=== PATIENT | female | born 1985 | race Caucasian/White ===

== ENCOUNTER 2018-03-20 13:58 | Emergency (ER) | payer BC ==
[2018-03-20] MEDS ORDERED: ALBUTEROL 2.5 MG/3 ML NEB SOL ONE (14:46)
[2018-03-20] MEDS ORDERED: IPRATROPIUM BROM 0.5MG/2.5ML ONE (14:46)
--- NOTE | 2018-03-20 15:15 | RAD REPORT ---
EXAM DESCRIPTION: RAD - Chest Pa And Lat (2 Views) - 03/20/2018 3:06 pm CLINICAL HISTORY: COUGH Chest pain. COMPARISON: CHEST SINGLE VIEW dated 07/10/2012 FINDINGS: The lungs are clear. The heart is normal in size. No displaced fractures. IMPRESSION: No acute or concerning finding suspected.
--- NOTE | 2018-03-20 15:49 | EDPHYS ---
Physician Documentation [facility] Name: Agustina Palmer Age: 32 yrs Sex: Female : 1985 Arrival Date: 03/20/2018 Time: 14:00 Bed 18 Private MD: None, None ED Physician Parag Valentine HPI: 03/20 14:52 This 32 yrs old Female presents to ER via Ambulatory with complaints of kb Dizziness, Vomiting, Cough, Headache. 14:52 The patient or guardian reports cough, that is intermittent, described as moderate, kb with no sputum. Onset: The symptoms/episode began/occurred 4 day(s) ago. Severity of symptoms: At their worst the symptoms were moderate, in the emergency department the symptoms are unchanged. Modifying factors: The symptoms are alleviated by nothing, the symptoms are aggravated by nothing. Associated signs and symptoms: Pertinent positives: nausea, rhinorrhea, vomiting, Pertinent negatives: chest pain, diarrhea, ear ache, fever, sore throat. The patient has not experienced similar symptoms in the past. The patient has not recently seen a physician. Pt reports cough, dizziness, rhinorrhea, congestion, nose bleeds and vomiting for 4 days. Denies fever. 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 - Social history:: Smoking status: Patient/guardian denies using tobacco. - Ebola Screening: : No symptoms or risks identified at this time. ROS: 14:53 Constitutional: Negative for fever, chills, and weight loss, Cardiovascular: Negative kb for chest pain, palpitations, and edema, Back: Negative for injury and pain, : Negative for injury, bleeding, discharge, and swelling, MS/Extremity: Negative for injury and deformity, Skin: Negative for injury, rash, and discoloration. 14:53 Constitutional: Positive for fatigue, malaise. 14:53 Respiratory: Positive for cough, Negative for dyspnea on exertion, hemoptysis, orthopnea, pleurisy, shortness of breath, sputum production, wheezing. 14:53 Abdomen/GI: Positive for nausea and vomiting. 14:53 Neuro: Positive for dizziness. Exam: 14:53 Constitutional: This is a well developed, well nourished patient who is awake, alert, kb and in no acute distress. Head/Face: Normocephalic, atraumatic. ENT: Nares patent. No nasal discharge, no septal abnormalities noted. Tympanic membranes are normal and external auditory canals are clear. Oropharynx with no redness, swelling, or masses, exudates, or evidence of obstruction, uvula midline. Mucous membranes moist. Neck: Trachea midline, no thyromegaly or masses palpated, and no cervical lymphadenopathy. Supple, full range of motion without nuchal rigidity, or vertebral point tenderness. No Meningismus. Chest/axilla: Normal chest wall appearance and motion. Nontender with no deformity. No lesions are appreciated. Cardiovascular: Regular rate and rhythm with a normal S1 and S2. No gallops, murmurs, or rubs. Normal PMI, no JVD. No pulse deficits. Respiratory: Lungs have equal breath sounds bilaterally, clear to auscultation and percussion. No rales, rhonchi or wheezes noted. No increased work of breathing, no retractions or nasal flaring. Abdomen/GI: Soft, non-tender, with normal bowel sounds. No distension or tympany. No guarding or rebound. No evidence of tenderness throughout. Skin: Warm, dry with normal turgor. Normal color with no rashes, no lesions, and no evidence of cellulitis. MS/ Extremity: Pulses equal, no cyanosis. Neurovascular intact. Full, normal range of motion. Neuro: Awake and alert, GCS 15, oriented to person, place, time, and situation. Cranial nerves II-XII grossly intact. Motor strength 5/5 in all extremities. Sensory grossly intact. Cerebellar exam normal. Normal gait. Vital Signs: 14:12 BP 138 / 101; Pulse 97; Resp 18 S; Temp 98.9(O); Pulse Ox 98% on R/A; Weight 101.15 kg aa5 (R); Height 5 ft. 4 in. (162.56 cm) (R); Pain 6/10; 14:53 BP 147 / 90; Pulse 92; Resp 16 S; Pulse Ox 99% on R/A; jl7 14:12 Body Mass Index 38.28 (101.15 kg, 162.56 cm) aa5 MDM: 14:18 Patient medically screened. kb 14:55 Data reviewed: vital signs, nurses notes. Data interpreted: Pulse oximetry: on room air kb is 99 %. Interpretation: normal. 15:46 Counseling: I had a detailed discussion with the patient and/or guardian regarding: the kb historical points, exam findings, and any diagnostic results supporting the discharge/admit diagnosis, lab results, radiology results, the need for outpatient follow up, a family practitioner, to return to the emergency department if symptoms worsen or persist or if there are any questions or concerns that arise at home. 03/20 14:33 Order name: Flu; Complete Time: 15:46 kb 03/20 14:33 Order name: Chest Pa And Lat (2 Views) XRAY; Complete Time: 15:18 kb Administered Medications: 14:46 Drug: DuoNeb (3:1) (2.5 mg - 0.5 mg) 3 ml Route: Nebulizer; jl7 15:00 Follow up: Response: No adverse reaction jl7 Disposition: 16:37 Co-signature as Attending Physician, Parag Valentine MD. rn Disposition: 03/20/18 15:48 Discharged to Home. Impression: Bronchitis, not specified as acute or chronic. - Condition is Stable. - Discharge Instructions: Acute Bronchitis, [id number]. - Prescriptions for Albuterol Sulfate 90 mcg/actuation - inhale 1-2 puff by INHALATION route every 4-6 hours; 1 Inhaler. - Medication Reconciliation Form, Thank You Letter, Antibiotic Education, Prescription Opioid Use, Work release form form. - Follow up: Emergency Department; When: As needed; Reason: Worsening of condition. Follow up: Private Physician; When: 2 - 3 days; Reason: Recheck today's complaints, Continuance of care, Re-evaluation by your physician. Signatures: Dispatcher [employer] EDAsiya Gudino, FELLED SEAM OPERATOR-C FELLED SEAM OPERATOR-Parag Nguyen MD MD rn Calderon, Audri RN RN aa5 Jacob Granado RN RN jl7 Corrections: (The following items were deleted from the chart) 15:54 15:48 03/20/2018 15:48 Discharged to Home. Impression: Bronchitis, not specified as jl7 acute or chronic. Condition is Stable. Forms are Medication Reconciliation Form, Thank You Letter, Antibiotic Education, Prescription Opioid Use. Follow up: Emergency Department; When: As needed; Reason: Worsening of condition. Follow up: Private Physician; When: 2 - 3 days; Reason: Recheck today's complaints, Continuance of care, Re-evaluation by your physician. kb
--- NOTE | 2018-03-20 15:49 | ER ---
Nurse's Notes [facility] Name: Agustina Palmer Age: 32 yrs Sex: Female : 1985 Arrival Date: 03/20/2018 Time: 14:00 Bed 18 Private MD: None, None Diagnosis: Bronchitis, not specified as acute or chronic Presentation: 03/20 14:11 Presenting complaint: Patient states: dizziness, cough with clear sputum, headache to aa5 left mandaen, and vomiting x 3-4 days ago. Transition of care: patient was not received from another setting of care. Onset of symptoms was March 2018. Risk Assessment: Do you want to hurt yourself or someone else? Patient reports no desire to harm self or others. Initial Sepsis Screen: Does the patient meet any 2 criteria? No. Patient's initial sepsis screen is negative. Does the patient have a suspected source of infection? No. Patient's initial sepsis screen is negative. Care prior to arrival: None. 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 - Social history:: Smoking status: Patient/guardian denies using tobacco. - Ebola Screening: : No symptoms or risks identified at this time. Screenin:48 Abuse screen: Denies threats or abuse. Denies injuries from another. Nutritional jl7 screening: No deficits noted. Tuberculosis screening: No symptoms or risk factors identified. Fall Risk None identified. Assessment: 14:46 General: Appears in no apparent distress. uncomfortable, Behavior is calm, cooperative, jl7 appropriate for age. Pain: Complains of pain in headache. Neuro: Level of Consciousness is awake, alert, obeys commands, Oriented to person, place, time, situation. Cardiovascular: Heart tones S1 S2 present. Respiratory: Reports cough that is dry, Airway is patent Respiratory effort is even, unlabored, Respiratory pattern is regular, symmetrical, Breath sounds are clear bilaterally. GI: Abdomen is round non-distended. : No signs and/or symptoms were reported regarding the genitourinary system. EENT: No signs and/or symptoms were reported regarding the EENT system. Derm: Skin is pink, warm \T\ dry. Musculoskeletal: No signs and/or symptoms reported regarding the musculoskeletal system. Vital Signs: 14:12 BP 138 / 101; Pulse 97; Resp 18 S; Temp 98.9(O); Pulse Ox 98% on R/A; Weight 101.15 kg aa5 (R); Height 5 ft. 4 in. (162.56 cm) (R); Pain 6/10; 14:53 BP 147 / 90; Pulse 92; Resp 16 S; Pulse Ox 99% on R/A; jl7 14:12 Body Mass Index 38.28 (101.15 kg, 162.56 cm) aa5 ED Course: 14:00 Patient arrived in ED. mr 14:00 None, None is Private Physician. mr 14:11 Arm band placed on. aa5 14:12 Triage completed. aa5 14:18 Asiya Pat FNP-C [facility]. kb 14:18 Parag Valentine MD is Attending Physician. kb 14:31 Jacob Granado RN is Primary Nurse. jl7 14:46 Flu and/or RSV swab sent to lab. jl7 14:48 Patient has correct armband on for positive identification. Bed in low position. Call jl7 light in reach. Side rails up X 1. Pulse ox on. NIBP on. 15:05 Chest Pa And Lat (2 Views) XRAY In Process Unspecified. EDMS 15:53 No provider procedures requiring assistance completed. Patient did not have IV access jl7 during this emergency room visit. Administered Medications: 14:46 Drug: DuoNeb (3:1) (2.5 mg - 0.5 mg) 3 ml Route: Nebulizer; jl7 15:00 Follow up: Response: No adverse reaction jl7 Outcome: 15:48 Discharge ordered by . kb 15:53 Discharged to home ambulatory. jl7 15:53 Condition: stable 15:53 Discharge instructions given to patient, Instructed on discharge instructions, follow up and referral plans. medication usage, Demonstrated understanding of instructions, follow-up care, medications, Prescriptions given X 1. 15:54 Patient left the ED. jl7 Signatures: Dispatcher [employer] EDIL Asiya Pat FNP-C FNP-Ckb Rivera, Mary mr Edilson, Regina, RN RN aa5 Jacob Granado, RN RN jl7
[2018-03-20 17:23] VITALS: TEMP 98.9
[2018-03-20 17:25] VITALS: BP 147/90; O2SAT 99
== END 2018-03-20 15:54 | disposition home or self-care (01) ==
LOC: ER 13:58
DX: J40 Bronchitis, not specified as acute or chronic (principal)
CPT/HCPCS: 71046; 87804; 94640; 99284

== ENCOUNTER 2021-05-15 20:25 | Inpatient (IN) | payer BC ==
[2021-05-15 23:03] LABS: Absolute Lymphocytes (CBC) 0.9 K/uL (0.7-4.9); Hematocrit 37.8 % (36.0-45.0); Lymphocytes % 6.5 % (15.3-44.8); MPV 8.8 fL (7.6-11.3); RBC Red Blood Cell Count 4.51 M/uL (3.86-4.86)
[2021-05-15 23:04] LABS: Protime INR 1.36
[2021-05-15] MEDS ORDERED: CEFTRIAXONE 1000 MG/VIAL ONE (23:08)
[2021-05-15] MEDS ORDERED: NA CHLORIDE 0.9% 1,000 ML ONE (23:09)
[2021-05-15] MEDS ORDERED: AZITHROMYCIN 500 MG INJ IVPB ONE (23:09)
[2021-05-15 23:30] LABS: Blood Morphology Comment NOT SEEN (NOT SEEN); Platelet Estimate INCR; White Blood Cell Scan OK (OK)
[2021-05-15 23:46] LABS: ALT/SGPT 38 U/L (12-78); AST/SGOT 63 U/L (15-37); Albumin 2.5 g/dL (3.4-5.0); Alkaline Phosphatase 77 U/L (45-117); BUN Blood Urea Nitrogen 31 mg/dL (7-18); Bicarbonate 24 mmol/L (21-32); Bilirubin Direct 0.4 mg/dL (0-0.2); Bilirubin Total 0.9 mg/dL (0.2-1.0); Glucose Level 155 mg/dL (74-106); Magnesium 2.7 mg/dL (1.8-2.4); NT PRO-BNP 297 pg/mL (<125); Potassium 3.6 mmol/L (3.5-5.1); Protein, Total 8.4 g/dL (6.4-8.2); Sodium Level 135 mmol/L (136-145)
[2021-05-16 00:15] LABS: Arterial Blood Carboxyhemoglob 1.2 % (0-1.5); Blood Gas Oxyhemoglobin 86.5 % (94-97); Blood O2 Saturation 88.2 % (92-98.5)
--- NOTE | 2021-05-16 00:34 | ER ---
Nurse's Notes [facility] Name: Agustina Palmer Age: 36 yrs Sex: Female : 1985 Arrival Date: 05/15/2021 Time: 20:28 Bed 26 Private MD: Diagnosis: Pneumonia due to SARS-associated coronavirus;Hypoxia Presentation: 05/15 21:00 Chief complaint: Patient states: per pt dx w covid 5 dAYS ago and has had worsening sob mr2 w cough and cp over the past 2 days. satting below 90% on ra at home along w nausea and vomiting. has not had covid vaccine. Coronavirus screen: Vaccine status: Patient reports being unvaccinated. Ebola Screen: No symptoms or risks identified at this time. Initial Sepsis Screen: Does the patient meet any 2 criteria? No. Patient's initial sepsis screen is negative. Does the patient have a suspected source of infection? No. Patient's initial sepsis screen is negative. Risk Assessment: Do you want to hurt yourself or someone else? Patient reports no desire to harm self or others. Onset of symptoms was May 16, 2021. 21:00 Method Of Arrival: EMS: [facility] mr2 21:00 Acuity: VALERIANO 3 mr2 Triage Assessment: 05/16 07:24 General: Appears distressed, uncomfortable, Behavior is calm, cooperative. Pain: Denies mr2 pain. 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 - Social history:: Smoking status: Patient/guardian denies using tobacco. Screenin:20 Abuse screen: Denies threats or abuse. Denies injuries from another. Nutritional mr2 screening: No deficits noted. Tuberculosis screening: No symptoms or risk factors identified. Fall Risk None identified. Assessment: 23:33 Reassessment: Patient and/or family updated on plan of care and expected duration. Pain kd3 level reassessed. Patient is alert, oriented x 3, equal unlabored respirations, skin warm/dry/pink. PT TOLERATING OXYGEN THERAPY. SEEN SLEEPING IN BED. NO SIGNS OF DISTRESS. 05/17 00:33 Reassessment: pt complaining of pain with coughing. pt seen, flushed cheeks, tripod kd3 position, O2 sat in high 80's when coughing. Tessalon Perles and morphine given. will reassess in 15 minutes. 00:50 Reassessment: Patient states feeling better. kd3 03:03 Reassessment: Patient is alert, oriented x 3, equal unlabored respirations, skin kd3 warm/dry/pink. Vital Signs: 05/15 22:09 Pulse 123; Resp 24; Temp 99.1; Pulse Ox 90% on 6 lpm NC; tt3 05/16 01:00 BP 137 / 84; Pulse 100; Resp 19; Temp 98.4; Pulse Ox 94% on NC; mr2 23:34 BP 128 / 82; Pulse 92; Resp 18; Pulse Ox 95% on NC; kd3 05/17 03:03 BP 132 / 81; Pulse 83; Resp 17; Pulse Ox 91% on NC; kd3 ED Course: 05/15 20:28 Patient arrived in ED. wm 21:55 Ulises Conrad MD is Attending Physician. mh7 22:38 XRAY Chest (1 view) In Process Unspecified. EDMS 22:46 Ferritin Sent. tt3 22:46 Procalcitonin Sent. tt3 22:46 CRP Sent. tt3 22:47 Lactate Sent. tt3 22:47 Blood Culture Adult (2) Sent. tt3 22:48 Initial lab(s) drawn, by me, sent to lab. First set of blood cultures drawn by me, tt3 Second set of blood cultures drawn by me, EKG done, by ED staff, reviewed by Ulises Conrad MD. Inserted saline lock: 20 gauge in left antecubital area, using aseptic technique. Blood collected. 22:55 Sergio Tineo, RN is Primary Nurse. mr2 05/16 00:00 Arm band placed on. mr2 00:10 Patient has correct armband on for positive identification. Bed in low position. Side mr2 rails up X2. 00:32 Mary Ann Valdovinos MD is Hospitalizing Provider. 7 07:24 Triage completed. mr2 07:26 No provider procedures requiring assistance completed. mr2 Administered Medications: 05/15 22:55 Drug: Albuterol HFA Inhaler 2 puffs Route: Inhalation; mr2 23:00 Drug: Rocephin (cefTRIAXone) 1 grams Route: IV; Rate: per protocol; Site: left mr2 antecubital; 23:00 Drug: NS 0.9% 1000 ml Route: IV; Rate: 1000 ml; Site: left antecubital; mr2 23:01 Drug: SOLU-Medrol (methylPrednisoLONE) 80 mg Route: IVP; Site: left antecubital; mr2 23:01 Drug: AZITHromycin 500 mg Route: IVPB; Infused Over: 1 hrs; Site: left antecubital; mr2 Outcome: 05/16 00:33 Decision to Hospitalize by Provider. mhAlessia 05/17 23:15 Patient left the ED. as6 Signatures: Dispatcher [employer] EDMS Ulises Conrad MD MD mh7 Kieran Doll 3 Dixie Olivas Mike, RN RN mr2 Femi Lauren RN RN as6 Yasmeen Givens RN RN kd3
--- NOTE | 2021-05-16 00:34 | EDPHYS ---
Physician Documentation [facility] Name: Agustina Palmer Age: 36 yrs Sex: Female : 1985 Arrival Date: 05/15/2021 Time: 20:28 Bed 26 Private MD: ED Physician Ulises Conrad HPI: 05/15 22:10 This 36 yrs old Unknown Female presents to ER via Unassigned with complaints of + mh7 COVID, LOW 02-73%. 22:10 The patient has shortness of breath at rest, with light activity. Onset: The mh7 symptoms/episode began/occurred 5 day(s) ago, and became worse last night. Duration: The symptoms are continuous, and are steadily getting worse. The patient's shortness of breath is aggravated by coughing, exertion, light activity, is alleviated by nothing. Associated signs and symptoms: Pertinent positives: chest pain, non-productive cough, fever, hemoptysis, Pertinent negatives: productive cough, diaphoresis, dizziness, loss of consciousness, nausea, numbness in extremities, visual changes, vomiting. Severity of symptoms: At their worst the symptoms were severe today, in the emergency department the symptoms have improved mildly. Patient states she tested positive for Covid 5 days ago. She reports having cough, shortness of breath, and subjective fever during the time but symptoms have worsened. She reports that her oxygen saturation level was in the 60s at home today.. 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 - Social history:: Smoking status: Patient/guardian denies using tobacco. ROS: 05/15 22:10 Eyes: Negative for injury, pain, redness, and discharge, ENT: Negative for injury, mh7 pain, and discharge, Neck: Negative for injury, pain, and swelling, Abdomen/GI: Negative for abdominal pain, nausea, vomiting, diarrhea, and constipation, Back: Negative for injury and pain, : Negative for injury, bleeding, discharge, and swelling, MS/Extremity: Negative for injury and deformity, Skin: Negative for injury, rash, and discoloration, Neuro: Negative for headache, weakness, numbness, tingling, and seizure, Psych: Negative for depression, anxiety, suicide ideation, homicidal ideation, and hallucinations, Allergy/Immunology: Negative for hives, rash, and allergies, Endocrine: Negative for neck swelling, polydipsia, polyuria, polyphagia, and marked weight changes, Hematologic/Lymphatic: Negative for swollen nodes, abnormal bleeding, and unusual bruising. Exam: 22:10 Head/Face: Normocephalic, atraumatic. Eyes: Pupils equal round and reactive to light, mh7 extra-ocular motions intact. Lids and lashes normal. Conjunctiva and sclera are non-icteric and not injected. Cornea within normal limits. Periorbital areas with no swelling, redness, or edema. ENT: Nares patent. No nasal discharge, no septal abnormalities noted. Tympanic membranes are normal and external auditory canals are clear. Oropharynx with no redness, swelling, or masses, exudates, or evidence of obstruction, uvula midline. Mucous membranes moist. Neck: Trachea midline, no thyromegaly or masses palpated, and no cervical lymphadenopathy. Supple, full range of motion without nuchal rigidity, or vertebral point tenderness. No Meningismus. Chest/axilla: Normal chest wall appearance and motion. Nontender with no deformity. No lesions are appreciated. 22:10 Abdomen/GI: Soft, non-tender, with normal bowel sounds. No distension or tympany. No guarding or rebound. No evidence of tenderness throughout. Back: No spinal tenderness. No costovertebral tenderness. Full range of motion. Skin: Warm, dry with normal turgor. Normal color with no rashes, no lesions, and no evidence of cellulitis. MS/ Extremity: Pulses equal, no cyanosis. Neurovascular intact. Full, normal range of motion. Neuro: Awake and alert, GCS 15, oriented to person, place, time, and situation. Cranial nerves II-XII grossly intact. Motor strength 5/5 in all extremities. Sensory grossly intact. Cerebellar exam normal. Normal gait. Psych: Awake, alert, with orientation to person, place and time. Behavior, mood, and affect are within normal limits. 22:10 Constitutional: The patient appears alert, awake, in obvious distress, moderately distressed, obviously ill. 22:10 Cardiovascular: Rate: tachycardic, Rhythm: regular, Pulses: no pulse deficits are appreciated, Heart sounds: normal, normal S1and S2, Edema: is not appreciated, JVD: is not appreciated. 22:10 Respiratory: moderate respiratory distress is noted, Respirations: prolonged exhalation, that is moderate, tachypnea, that is mild, Breath sounds: rales, that are mild, are located in both bases, rhonchi, that are moderate, are scattered, Respiratory rate: 26 Vital Signs: 22:09 Pulse 123; Resp 24; Temp 99.1; Pulse Ox 90% on 6 lpm NC; tt3 05/16 01:00 BP 137 / 84; Pulse 100; Resp 19; Temp 98.4; Pulse Ox 94% on NC; mr2 23:34 BP 128 / 82; Pulse 92; Resp 18; Pulse Ox 95% on NC; kd3 05/17 03:03 BP 132 / 81; Pulse 83; Resp 17; Pulse Ox 91% on NC; kd3 MDM: 05/16 00:31 Differential diagnosis: Anemia Anxiety Reaction asthma, Bronchitis CHF exacerbation, [facility] Chronic Obstructive Pulmonary Disease Myocardial Infarction pneumonia, Pneumothorax Psychogenic pulmonary edema, reactive airway disease. Data reviewed: vital signs, nurses notes, lab test result(s), cardiac enzymes, CBC, electrolytes, urinalysis, EKG, radiologic studies, plain films. Data interpreted: Pulse oximetry: on High flow oxygen is 94 %. Interpretation: acceptable. Counseling: I had a detailed discussion with the patient and/or guardian regarding: the historical points, exam findings, and any diagnostic results supporting the discharge/admit diagnosis, lab results, radiology results, the need for further work-up and treatment in the hospital. Response to treatment: the patient's symptoms have markedly improved after treatment. 00:33 Patient medically screened. [facility] 05/15 22:01 Order name: Basic Metabolic Panel [facility] 05/15 22:01 Order name: CBC with Diff; Complete Time: 23:45 [facility] 05/15 22:01 Order name: LFT's [facility] 05/15 22:01 Order name: Magnesium [facility] 05/15 22:01 Order name: NT PRO-BNP [facility] 05/15 22:01 Order name: PT-INR; Complete Time: 23:45 [facility] 05/15 22:01 Order name: Troponin (emerg Dept Use Only) [facility] 05/15 22:02 Order name: Blood Culture Adult (2) [facility] 05/15 22:02 Order name: Lactate; Complete Time: 23:45 [facility] 05/15 22:02 Order name: Procalcitonin; Complete Time: 23:45 [facility] 05/15 22:02 Order name: CRP [facility] 05/15 22:02 Order name: Ferritin [facility] 05/15 23:15 Order name: CBC Smear Scan; Complete Time: 23:45 [facility] 05/15 23:45 Order name: Arterial Blood Gas [facility] 05/16 11:11 Order name: Glucose, Ancillary Testing [facility] 05/16 11:47 Order name: Procalcitonin [facility] 05/16 16:35 Order name: Glucose, Ancillary Testing [facility] 05/17 04:28 Order name: CBC with Automated Diff [facility] 05/17 05:23 Order name: Comprehensive Metabolic Panel [facility] 05/17 05:23 Order name: Phosphorus [facility] 05/17 05:23 Order name: Lipid Profile [facility] 05/17 05:23 Order name: C-Reactive Protein [facility] 05/17 05:23 Order name: T4 Free [facility] 05/17 05:23 Order name: Magnesium [facility] 05/17 05:23 Order name: Thyroid Stimulating Hormone [facility] 05/17 05:23 Order name: Ferritin [facility] 05/17 08:28 Order name: Glucose, Ancillary Testing [facility] 05/17 11:36 Order name: Procalcitonin [facility] 05/17 11:39 Order name: Glucose, Ancillary Testing [facility] 05/17 16:53 Order name: Glucose, Ancillary Testing [facility] 05/15 22:01 Order name: XRAY Chest (1 view) [facility] 05/15 22:01 Order name: EKG; Complete Time: 22:02 [facility] 05/15 22:01 Order name: Cardiac monitoring; Complete Time: 22:47 [facility] 05/15 22:01 Order name: EKG - Nurse/Tech; Complete Time: 22:47 [facility] 05/15 22:01 Order name: IV Saline Lock; Complete Time: 22:47 [facility] 05/15 22:01 Order name: Labs collected and sent; Complete Time: 22:47 [facility] 05/15 22:01 Order name: O2 Per Protocol; Complete Time: 22:47 [facility] 05/15 22:01 Order name: O2 Sat Monitoring; Complete Time: 22:47 [facility] 05/15 22:01 Order name: Urine Dipstick-Ancillary (obtain specimen) [facility] 05/15 22:01 Order name: Urine Test (obtain specimen) [facility] 05/16 00:24 Order name: CONS Physician Consult [facility] 05/17 21:44 Order name: Glucose, Ancillary Testing [facility] Administered Medications: 05/15 22:55 Drug: Albuterol HFA Inhaler 2 puffs Route: Inhalation; mr2 23:00 Drug: Rocephin (cefTRIAXone) 1 grams Route: IV; Rate: per protocol; Site: left mr2 antecubital; 23:00 Drug: NS 0.9% 1000 ml Route: IV; Rate: 1000 ml; Site: left antecubital; mr2 23:01 Drug: SOLU-Medrol (methylPrednisoLONE) 80 mg Route: IVP; Site: left antecubital; mr2 23:01 Drug: AZITHromycin 500 mg Route: IVPB; Infused Over: 1 hrs; Site: left antecubital; mr2 Disposition Summary: 05/16/21 00:33 Hospitalization Ordered Hospitalization Status: Inpatient Admission [facility] Provider: Mary Ann Valdovinos Alessia Condition: Fair [facility] Problem: new [facility] Symptoms: have improved [facility] Bed/Room Type: Standard [facility] Location: Telemetry/MedSurg (Inpatient)(05/17/21 19:21) Room Assignment: [facility](05/17/21 19:21) Diagnosis - Pneumonia due to SARS-associated coronavirus [facility] - Hypoxia [facility] Forms: - Medication Reconciliation Form [facility] - SBAR form [facility] Signatures: Dispatcher [employer] [facility] Jennifer Vega RN RN Ulises Conrad MD MD [facility] Sergio Tineo RN RN mr2 Corrections: (The following items were deleted from the chart) 05/16 01:09 00:33 Telemetry/MedSurg (Inpatient) [facility] 01: 00:33 [facility] 05/17 19:21 05/16 01:09 [facility] ER HOLD [facility] 05/17 19:21 [facility]
[2021-05-16] MEDS ORDERED: NA CHLORIDE 0.9% 0 ML ONE (00:50)
--- NOTE | 2021-05-16 01:12 | P.HP ---
Certification for Inpatient Patient admitted to: Inpatient With expected LOS: >2 Midnights Patient will require the following post-hospital care: None Practitioner: I am a practitioner with admitting privileges, knowledge of patient current condition, hospital course, and medical plan of care. Services: Services provided to patient in accordance with Admission requirements found in Title 42 Section 412.3 of the Code of Federal Regulations <Christian Hernandez - Last Filed: 05/16/21 01:07> Patient History Date of Service: 05/16/21 Primary Care Provider: Kendrick Reason for admission: covid pneumonia History of Present Illness: Ms. Palmer is a 36 yo F with HTN, HLD, hypothyroidism who presents with hypox ia, 72% on room air. She had flu like symptoms begin on 05/05 and was prescribed a Zpack by her PCP but she did not get better. On 05/10, she tested positive for COVID. She received Levaquin, prednisone and inhaler. Today she had increased SOB so decided to come to the ED. She reports fever, cough, malaise, headache, poor appetite and poor fluid intake. WBC 13.7 BUN 31 Cr 1.62 GFR 36 Glu 155 Dbili 0.4 AST 63 CRP 179 BNP 297 - Past Medical/Surgical History -: HTN -: HLD -: hypothyroidism -: 2 ankle surgeries -: tonsillectomy - Family History Family History: Reviewed- Non-Contributory - Social History Smoking Status: Never smoker Alcohol use: No CD- Drugs: No Caffeine use: No Place of Residence: Home <Christian Hernandez - Last Filed: 05/16/21 01:07> Date of Service: 05/16/21 <Mary Ann Valdovinos - Last Filed: 05/17/21 20:48> Allergies amoxicillin trihydrate [From Augmentin] Allergy (Verified 07/10/12 11:33) Itching/Hives/Rash codeine [Codeine] Allergy (Verified 07/10/12 11:33) Itching/Hives/Rash potassium clavulanate [From Augmentin] Allergy (Verified 07/10/12 11:33) Itching/Hives/Rash Home Medications: Aripiprazole [Abilify] 20 mg PO BEDTIME 05/16/21 Atorvastatin Calcium [Lipitor] 40 mg PO BEDTIME 05/16/21 Diclofenac Potassium 50 mg PO BID 05/16/21 Levothyroxine Sodium [Levothyroxine] 100 mcg PO DAILY 05/16/21 Metoprolol/Hydrochlorothiazide [Metoprolol-Hctz 50-25 mg Tab] 1 each PO DAILY 05/16/21 Quetiapine [Seroquel] 100 mg PO BEDTIME 05/16/21 Tizanidine [Zanaflex] 4 mg PO PRN 05/16/21 hydrOXYzine HCL [Atarax] 25 mg PO BEDTIME 05/16/21 Review of Systems 10-point ROS is otherwise unremarkable General: Fever, Weakness, Malaise, As per HPI Eyes: Unremarkable ENT: Unremarkable Respiratory: Cough, Shortness of Breath, SOB with Excertion, Sputum, As per HPI Cardiovascular: Unremarkable Gastrointestinal: Nausea, As per HPI Genitourinary: Unremarkable Musculoskeletal: Unremarkable Integumentary: Unremarkable Neurological: Unremarkable Lymphatics: Unremarkable <Christian Hernandez - Last Filed: 05/16/21 01:07> Physical Examination - Physical Exam General: Alert, In no apparent distress HEENT: Atraumatic, PERRLA, Mucous membr. moist/pink, EOMI, Sclerae nonicteric Neck: Supple, 2+ carotid pulse no bruit, No LAD, Without JVD or thyroid abnormality Respiratory: Diminished Cardiovascular: Regular rate/rhythm, Normal S1 S2 Gastrointestinal: Normal bowel sounds, No tenderness Musculoskeletal: No tenderness Integumentary: No rashes Neurological: Normal speech, Normal strength at 5/5 x4 extr, Normal tone, Normal affect Lymphatics: No axilla or inguinal lymphadenopathy - Studies Laboratory Data (last 24 hrs) 05/15/21 22:36: PT 15.7 H, INR 1.36 05/15/21 22:36: WBC 13.70 H, Hgb 12.6, Hct 37.8, Plt Count 318 05/15/21 22:36: Sodium 135 L, Potassium 3.6, BUN 31 H, Creatinine 1.62 H, Glucose 155 H, Magnesium 2.7 H, Total Bilirubin 0.9, AST 63 H, ALT 38, Alkaline Phosphatase 77 <Christian Hernandez - Last Filed: 05/16/21 01:07> Assessment and Plan - Problems (Diagnosis) (1) Pneumonia due to COVID-19 virus Current Visit: Yes Status: Acute (2) HTN (hypertension) Current Visit: Yes Status: Chronic Qualifiers: Hypertension type: primary hypertension Qualified Code(s): I10 - Essential (primary) hypertension (3) HLD (hyperlipidemia) Current Visit: Yes Status: Chronic Qualifiers: Hyperlipidemia type: unspecified Qualified Code(s): E78.5 - Hyperlipidemia, unspecified (4) Hypothyroid Current Visit: Yes Status: Chronic Qualifiers: Hypothyroidism type: unspecified Qualified Code(s): E03.9 - Hypothyroidism, unspecified - Plan pulm consulted, RT consulted continue IV steroids, covid supplements daily CRP, ferritin, procalcitonin continue HFNC continue xarelto reconcile and continue home medications monitor kidney function Discharge Plan: Home Plan to discharge in: 72 Hours - Advance Directives Does patient have a Living Will: No Does patient have a Durable POA for Healthcare: No - Code Status/Comfort Care Code Status Assessed: Yes (full code ) Critical Care: No Time Spent Managing Pts Care (In Minutes): 70 <Christian Hernandez - Last Filed: 05/16/21 01:07> - Problems (Diagnosis) (1) Pneumonia due to COVID-19 virus Current Visit: Yes Status: Acute (2) HTN (hypertension) Current Visit: Yes Status: Chronic Qualifiers: Hypertension type: primary hypertension Qualified Code(s): I10 - Essential (primary) hypertension <Mary Ann Valdovinos - Last Filed: 05/17/21 20:48> Date of Service: 05/16/21 Subjective Agree with HPI as mentioned above Review of Systems 10-point ROS is otherwise unremarkable Physical Examination - Vital Signs Reviewed - Physical Exam General: Alert, In no apparent distress, Oriented x3 Respiratory: Clear to auscultation bilaterally, Normal air movement Cardiovascular: Regular rate/rhythm, Normal S1 S2, No murmurs Gastrointestinal: Normal bowel sounds, Soft and benign, Non-distended, No tenderness Musculoskeletal: No clubbing, No swelling, No tenderness Neurological: Sensation intact, Cranial nerves 3-12 intact - Studies Medications List Reviewed: Yes Assessment & Plan - Problems (Diagnosis) (1) Pneumonia due to COVID-19 virus Current Visit: Yes Status: Acute (2) HTN (hypertension) Current Visit: Yes Status: Chronic Qualifiers: Hypertension type: primary hypertension Qualified Code(s): I10 - Essential (primary) hypertension - Plan Continue with plan of care as mentioned below: 1. Continue with IV steroids 2. Monitor inflammatory markers 3. Repeat chest x-ray 4. O2 per protocol 5. Pulmonary consultation appreciated 6. Continue with albuterol inhaler therapy; also supportive care 7. Strict blood pressure control 8. GI and DVT prophylaxis <Mary Ann Valdovinos - Last Filed: 05/17/21 20:48>
[2021-05-16 03:17] LABS: Ferritin 2085.1 ng/mL (8-388); Troponin (Emerg Dept Use Only) < 0.02 ng/mL (0.0-0.045)
--- NOTE | 2021-05-16 08:15 | RAD REPORT ---
EXAM DESCRIPTION: RAD - Chest Single View - 05/15/2021 10:38 pm CLINICAL HISTORY: Chest pain;Cough;SOB, COVID positive COMPARISON: March 2018 TECHNIQUE: AP portable chest image was obtained 05/15/2021 10:38 pm . FINDINGS: Lung volumes are low. Patchy airspace opacification present more pronounced in the mid and lower left lung field. Lung pattern is commonly seen with COVID-19 pneumonia. Heart and vasculature are normal. No measurable pleural effusion and no pneumothorax. No acute bony abnormality seen. No ac jose l aortic findings suspected. IMPRESSION: Mild to moderate bilateral COVID-19 pneumonia pattern.
[2021-05-16] MEDS: INSULIN -REGULAR HUMAN 50 UNIT/0.5 ML ML SQ SCH ×4 (10:24→21:00)
[2021-05-16] MEDS ORDERED: ACETAMINOPHEN 500 MG TAB PO PRN (10:24)
--- NOTE | 2021-05-16 10:29 | P.CNS ---
Date of Consult: 05/16/21 Reason for Consult: Pneumonia due to coronavirus Primary Care Provider: Kendrick Chief Complaint: covid pneumonia History of Present Illness: Patient is 36 years of age with metabolic syndrome admitted with respiratory failure from coronavirus she has not been vaccinated has not had Covid before admitted with worsening shortness of breath complaining of cough malaise poor appetite Allergies amoxicillin trihydrate [From Augmentin] Allergy (Verified 07/10/12 11:33) Itching/Hives/Rash codeine [Codeine] Allergy (Verified 07/10/12 11:33) Itching/Hives/Rash potassium clavulanate [From Augmentin] Allergy (Verified 07/10/12 11:33) Itching/Hives/Rash - Past Medical/Surgical History -: HTN -: HLD -: hypothyroidism -: 2 ankle surgeries -: tonsillectomy - Social History Alcohol use: No CD- Drugs: No Caffeine use: No Place of Residence: Home Review of Systems General: Weakness Respiratory: Cough, Shortness of Breath Physical Examination General: Alert, Moderate distress Laboratory Data (last 24 hrs) 05/15/21 22:36: PT 15.7 H, INR 1.36 05/15/21 22:36: WBC 13.70 H, Hgb 12.6, Hct 37.8, Plt Count 318 05/15/21 22:36: Sodium 135 L, Potassium 3.6, BUN 31 H, Creatinine 1.62 H, Glucose 155 H, Magnesium 2.7 H, Total Bilirubin 0.9, AST 63 H, ALT 38, Alkaline Phosphatase 77 - Problems (1) Pneumonia due to COVID-19 virus Current Visit: Yes Status: Acute Plan: Patient is 36 years of age admitted with respiratory failure from coronavirus mild renal insufficiency chest x-ray consistent with coronavirus pneumonia continue with IV steroids IV fluids anticoagulation patient qualifies for Barcitinib start on IV fluid
[2021-05-16] MEDS ORDERED: VITAMIN D 1000 UNIT TAB ONE (10:42)
[2021-05-16] MEDS ORDERED: ASCORBIC ACID 500 MG TABLET ONE ×4 (10:42→21:48)
[2021-05-16] MEDS ORDERED: BENZONATATE 100 MG CAP PO ONE (10:43)
[2021-05-16] MEDS ORDERED: FAMOTIDINE 20 MG TAB ONE ×2 (10:43→21:49)
[2021-05-16] MEDS ORDERED: METHYLPREDNISOLONE 125 MG INJ ONE (10:44)
[2021-05-16] MEDS ORDERED: THIAMINE HCL 100 MG TABLET ONE (10:44)
[2021-05-16] MEDS ORDERED: ASPIRIN EC 81 MG TAB PO ONE (10:45)
[2021-05-16] MEDS ORDERED: NA CHLORIDE 0.9% 1,000 ML ONE (10:45)
[2021-05-16] MEDS ORDERED: ZINC SULFATE 220 MG CAP ONE (10:45)
[2021-05-16] MEDS: VITAMIN D 1000 UNIT TAB PO SCH (11:01)
[2021-05-16] MEDS: THIAMINE HCL 100 MG TABLET PO SCH (11:02)
[2021-05-16] MEDS: ASCORBIC ACID 500 MG TABLET PO SCH ×4 (11:02→21:00)
[2021-05-16] MEDS: BENZONATATE 100 MG CAP PO PRN (11:02)
[2021-05-16] MEDS: METHYLPREDNISOLONE 125 MG INJ IV SCH ×2 (11:02→21:00)
[2021-05-16] MEDS: FAMOTIDINE 20 MG TAB PO SCH ×2 (11:02→21:00)
[2021-05-16] MEDS: ASPIRIN EC 81 MG TAB PO SCH (11:02)
[2021-05-16] MEDS: ZINC SULFATE 220 MG CAP PO SCH (11:02)
[2021-05-16] MEDS ORDERED: MORPHINE 2 MG/ML SYR ONE (11:12)
[2021-05-16] MEDS ORDERED: RIVAROXABAN 20 MG TABLET PO ONE ×2 (11:12→21:53)
[2021-05-16] MEDS ORDERED: ONDANSETRON 4 MG/2 ML VIAL ONE ×2 (11:13→22:02)
[2021-05-16] MEDS: RIVAROXABAN 15 MG TABLET PO SCH ×2 (11:30→21:00)
[2021-05-16] MEDS: ONDANSETRON 4 MG/2 ML VIAL IV PRN ×2 (12:39→22:11)
[2021-05-16] MEDS: MORPHINE 2 MG/ML SYR IV PRN (12:39)
[2021-05-16] MEDS ORDERED: METHYLPREDNISOLONE 40 MG INJ ONE (21:49)
[2021-05-17] MEDS: BENZONATATE 100 MG CAP PO PRN (00:29)
[2021-05-17] MEDS ORDERED: BENZONATATE 100 MG CAP PO ONE (00:29)
[2021-05-17] MEDS: MORPHINE 2 MG/ML SYR IV PRN ×3 (00:29→17:03)
[2021-05-17] MEDS ORDERED: MORPHINE 2 MG/ML SYR ONE ×3 (00:30→17:00)
[2021-05-17 04:23] LABS: Absolute Lymphocytes (CBC) 0.7 K/uL (0.7-4.9); Hematocrit 39.5 % (36.0-45.0); Lymphocytes % 8.6 % (15.3-44.8); MPV 8.1 fL (7.6-11.3); RBC Red Blood Cell Count 4.65 M/uL (3.86-4.86)
[2021-05-17 05:23] LABS: Albumin 2.1 g/dL (3.4-5.0); Bilirubin Total 0.7 mg/dL (0.2-1.0); Ferritin 2222.9 ng/mL (8-388); Magnesium 2.8 mg/dL (1.8-2.4); Phosphorus 2.9 mg/dL (2.5-4.9); Potassium 3.9 mmol/L (3.5-5.1); Protein, Total 7.4 g/dL (6.4-8.2); Thyroid Stimulating Hormone 0.012 uIU/mL (0.360-3.740)
[2021-05-17] MEDS: INSULIN -REGULAR HUMAN 50 UNIT/0.5 ML ML SQ SCH ×4 (07:30→21:00)
[2021-05-17] MEDS ORDERED: METHYLPREDNISOLONE 125 MG INJ ONE ×2 (08:31→21:37)
[2021-05-17] MEDS ORDERED: ASPIRIN EC 81 MG TAB PO ONE (08:32)
[2021-05-17] MEDS ORDERED: VITAMIN D 1000 UNIT TAB ONE (08:32)
[2021-05-17] MEDS ORDERED: ASCORBIC ACID 500 MG TABLET ONE ×4 (08:32→21:38)
[2021-05-17] MEDS ORDERED: ZINC SULFATE 220 MG CAP ONE (08:32)
[2021-05-17] MEDS ORDERED: THIAMINE HCL 100 MG TABLET ONE (08:32)
[2021-05-17] MEDS ORDERED: FAMOTIDINE 20 MG TAB ONE ×2 (08:33→21:38)
[2021-05-17] MEDS: FAMOTIDINE 20 MG TAB PO SCH ×2 (09:00→21:00)
[2021-05-17] MEDS: THIAMINE HCL 100 MG TABLET PO SCH (09:00)
[2021-05-17] MEDS: METHYLPREDNISOLONE 125 MG INJ IV SCH ×2 (09:00→21:00)
[2021-05-17] MEDS: ZINC SULFATE 220 MG CAP PO SCH (09:00)
[2021-05-17] MEDS: ASCORBIC ACID 500 MG TABLET PO SCH ×4 (09:00→21:00)
[2021-05-17] MEDS: VITAMIN D 1000 UNIT TAB PO SCH (09:00)
[2021-05-17] MEDS: RIVAROXABAN 15 MG TABLET PO SCH ×2 (09:00→21:00)
[2021-05-17] MEDS: ASPIRIN EC 81 MG TAB PO SCH (09:00)
[2021-05-17] MEDS ORDERED: ONDANSETRON 4 MG/2 ML VIAL ONE (17:00)
[2021-05-17] MEDS: ONDANSETRON 4 MG/2 ML VIAL IV PRN (17:04)
--- NOTE | 2021-05-17 20:46 | P.PN ---
Subjective Date of Service: 05/17/21 Subjective: No new changes, No C/O voiced, Improving Review of Systems 10-point ROS is otherwise unremarkable Physical Examination - Vital Signs Temperature: 98.7 F Blood Pressure: 112/69 Pulse: 79 Respirations: 24 Pulse Ox (%): 93 - Physical Exam General: Alert, In no apparent distress, Oriented x3 Respiratory: Clear to auscultation bilaterally, Normal air movement Cardiovascular: Regular rate/rhythm, Normal S1 S2, No murmurs Gastrointestinal: Normal bowel sounds, Soft and benign, Non-distended, No tenderness Musculoskeletal: No clubbing, No swelling, No tenderness Neurological: Sensation intact, Cranial nerves 3-12 intact - Studies Medications List Reviewed: Yes Assessment & Plan - Problems (Diagnosis) (1) Pneumonia due to COVID-19 virus Current Visit: Yes Status: Acute (2) HTN (hypertension) Current Visit: Yes Status: Chronic Qualifiers: Hypertension type: primary hypertension Qualified Code(s): I10 - Essential (primary) hypertension - Plan 1. Continue with IV steroids 2. Monitor inflammatory markers 3. Repeat chest x-ray 4. O2 per protocol 5. Pulmonary consultation appreciated 6. Continue with albuterol inhaler therapy; also supportive care 7. Strict blood pressure control 8. GI and DVT prophylaxis Discharge Plan: Home Plan to discharge in: Greater than 2 days - Advance Directives Does patient have a Living Will: No Does patient have a Durable POA for Healthcare: No - Code Status/Comfort Care Code Status Assessed: Yes Code Status: Full Code Critical Care: No Time Spent Managing PTS Care (In Minutes): 35
[2021-05-17] MEDS ORDERED: ALBUTEROL INHALER 60 PUFF/8 GM IH PRN (20:47)
[2021-05-18] MEDS ORDERED: METHYLPREDNISOLONE 125 MG INJ IV SCH
[2021-05-18] MEDS: BENZONATATE 100 MG CAP PO PRN ×3 (00:22→20:18)
[2021-05-18] MEDS: MELATONIN 5 MG TABLET PO PRN (00:22)
[2021-05-18 04:28] LABS: Absolute Lymphocytes (CBC) 0.8 K/uL (0.7-4.9); Hematocrit 39.4 % (36.0-45.0); Lymphocytes % 5.8 % (15.3-44.8); MPV 8.4 fL (7.6-11.3); RBC Red Blood Cell Count 4.63 M/uL (3.86-4.86)
[2021-05-18 04:37] LABS: Albumin 2.1 g/dL (3.4-5.0); Bilirubin Total 0.6 mg/dL (0.2-1.0); C-Reactive Protein 49.8 mg/L (<3.00); Ferritin 1950.9 ng/mL (8-388); Potassium 4.3 mmol/L (3.5-5.1); Protein, Total 7.2 g/dL (6.4-8.2)
[2021-05-18] MEDS: HYDROCODONE/CHLORPHEN 5 ML/OSYR PO PRN ×2 (04:38→16:10)
[2021-05-18 04:40] VITALS: BMI 37.4
[2021-05-18] MEDS: INSULIN -REGULAR HUMAN 50 UNIT/0.5 ML ML SQ SCH ×4 (07:30→20:51)
[2021-05-18] MEDS: VITAMIN D 1000 UNIT TAB PO SCH (08:36)
[2021-05-18] MEDS: ASPIRIN EC 81 MG TAB PO SCH (08:36)
[2021-05-18] MEDS: THIAMINE HCL 100 MG TABLET PO SCH (08:37)
[2021-05-18] MEDS: FAMOTIDINE 20 MG TAB PO SCH ×2 (08:38→20:03)
[2021-05-18] MEDS: RIVAROXABAN 15 MG TABLET PO SCH ×2 (08:38→20:02)
[2021-05-18] MEDS: METHYLPREDNISOLONE 125 MG INJ IV SCH ×2 (08:38→20:02)
[2021-05-18] MEDS: ASCORBIC ACID 500 MG TABLET PO SCH ×4 (08:38→20:02)
[2021-05-18] MEDS: ZINC SULFATE 220 MG CAP PO SCH (08:38)
--- NOTE | 2021-05-18 11:20 | P.PN ---
Subjective Date of Service: 05/18/21 Primary Care Provider: Kendrick Chief Complaint: covid pneumonia Condition stable still requiring high concentrations of oxygen Review of Systems General: Weakness Respiratory: Shortness of Breath Physical Examination - Vital Signs Temperature: 98.1 F Blood Pressure: 131/75 Pulse: 86 Respirations: 24 Pulse Ox (%): 98 - Studies Medications List Reviewed: Yes Assessment & Plan - Problems (Diagnosis) (1) Pneumonia due to COVID-19 virus Current Visit: Yes Status: Acute Plan: Respiratory failure from coronavirus still requiring high concentrations of oxygen labs reviewed Barcitinib requested
[2021-05-18] MEDS: BARICITINIB 2 MG TABLET PO SCH (13:11)
--- NOTE | 2021-05-18 15:17 | P.PN ---
Subjective Date of Service: 05/18/21 Primary Care Provider: Dr. Marks Chief Complaint: covid pneumonia Subjective: Other (Patient reports mild improvement. Currently on high flow at 100%) Physical Examination - Vital Signs Temperature: 98.4 F Blood Pressure: 126/75 Pulse: 78 Respirations: 24 Pulse Ox (%): 93 - Studies Medications List Reviewed: Yes Assessment & Plan Discharge Plan: Home Plan to discharge in: Greater than 2 days Physician Review Additional Text: COVID: Positive Initial CXR: COMPARISON: March 2018 TECHNIQUE: AP portable chest image was obtained 05/15/2021 10:38 pm . FINDINGS: Lung volumes are low. Patchy airspace opacification present more pronounced in the mid and lower left lung field. Lung pattern is commonly seen with COVID-19 pneumonia. Heart and vasculature are normal. No measurable pleural effusion and no pneumothorax. No acute bony abnormality seen. No acute aortic findings suspected. IMPRESSION: Mild to moderate bilateral COVID-19 pneumonia pattern. Physical Exam: GENERAL: The patient is a well-developed, well-nourished, in no apparent distress. Alert and oriented x3. VITAL SIGNS: Reviewed HEENT: Neck supple LUNGS: Clear to auscultation. No crackles or wheezes are heard. Currently on high flow at 100% HEART: Regular rate and rhythm, no appreciable gallops, rubs, murmurs or extra heart sounds ABDOMEN: Soft, nontender, and nondistended. Positive bowel sounds. No hepatosplenomegaly was noted. EXTREMITIES: Without any cyanosis, clubbing, rash, lesions or peripheral edema. NEUROLOGIC: The patient is oriented to person, place and time. Strength and sensation are grossly intact. Face is symmetric. SKIN: Normal color, turgor and temperature. No ulcerations or rashes noted. Impression: Dyspnea secondary to acute respiratory failure with hypoxia related to COVID-19 Pneumonia Hypothyroidism Hypertension Bipolar disorder Hyperlipidemia Plan: Dyspnea secondary to acute respiratory failure with hypoxia related to COVID-19 Pneumonia: Continue with IV Solu-Medrol at 80 mg twice daily. Spoke with pulmonology. Pulmonology recommended starting baricitinib. Will monitor liver function tests while on medication. Continue with BiPAP and wean off to maintain sats above 93%. Monitor lab closely. Monitor LFTs. Recheck chest x- ray tomorrow. Continue to reassess and monitor. Hypothyroidism: Restart levothyroxine 100 mcg daily. Hypertension: BP stable off medication. Previously on metoprolol and hydrochlorothiazide. Will monitor off medication. Bipolar disorder: Restart Abilify 20 mg daily and Seroquel 100 mg daily Hyperlipidemia: Restart Lipitor 40 mg daily Code Status: Full Code DVT prophylaxis: Ana Maria Advanced Care Planning-30 minutes: Home at discharge Time Spent Managing Pts Care (In Minutes): 55
[2021-05-18] MEDS: ATORVASTATIN 40 MG TAB PO SCH (20:02)
[2021-05-18] MEDS: ARIPiprazole 5 MG TAB PO SCH (20:03)
[2021-05-18] MEDS: ONDANSETRON 4 MG/2 ML VIAL IV PRN (20:17)
[2021-05-18] MEDS ORDERED: ARIPIPRAZOLE 20 MG PO SCH (21:00)
[2021-05-18 23:30] LABS: Arterial Blood Carboxyhemoglob 0.9 % (0-1.5); Blood Gas Oxyhemoglobin 81.3 % (94-97)
[2021-05-19] MEDS ORDERED: SCOPOLAMINE HYDROBROMIDE PATCH TD ONE (00:21)
[2021-05-19] MEDS ORDERED: AYR NASAL SALINE DROPS NAS PRN (03:42)
[2021-05-19 03:53] LABS: Absolute Lymphocytes (CBC) 0.8 K/uL (0.7-4.9); Hematocrit 39.6 % (36.0-45.0); Lymphocytes % 6.2 % (15.3-44.8); MPV 8.1 fL (7.6-11.3); RBC Red Blood Cell Count 4.67 M/uL (3.86-4.86)
[2021-05-19 04:16] LABS: Albumin 2.1 g/dL (3.4-5.0); Bilirubin Total 0.6 mg/dL (0.2-1.0); C-Reactive Protein 21.3 mg/L (<3.00); Ferritin 1123.2 ng/mL (8-388); Potassium 4.9 mmol/L (3.5-5.1)
[2021-05-19 04:45] LABS: Blood Morphology Comment NOT SEEN (NOT SEEN); Platelet Estimate ADEQ
[2021-05-19] MEDS: LEVOTHYROXINE SOD 0.1 MG TAB PO SCH (05:34)
[2021-05-19] MEDS: HYDROCODONE/CHLORPHEN 5 ML/OSYR PO PRN (05:34)
--- NOTE | 2021-05-19 06:10 | P.PN ---
Subjective Date of Service: 05/19/21 Primary Care Provider: Dr. Marks Chief Complaint: covid pneumonia Subjective: Improving Physical Examination - Vital Signs Temperature: 98.4 F Blood Pressure: 130/63 Pulse: 107 Respirations: 19 Pulse Ox (%): 90 - Studies Medications List Reviewed: Yes Assessment & Plan Discharge Plan: Home Plan to discharge in: Greater than 2 days Physician Review Additional Text: COVID: Positive Initial CXR: COMPARISON: March 2018 TECHNIQUE: AP portable chest image was obtained 05/15/2021 10:38 pm . FINDINGS: Lung volumes are low. Patchy airspace opacification present more pronounced in the mid and lower left lung field. Lung pattern is commonly seen with COVID-19 pneumonia. Heart and vasculature are normal. No measurable pleural effusion and no pneumothorax. No acute bony abnormality seen. No acute aortic findings suspected. IMPRESSION: Mild to moderate bilateral COVID-19 pneumonia pattern. Follow up CXR 05/19/2021: COMPARISON: May 15, 2021 FINDINGS: Minimal worsening in diffuse bilateral pulmonary opacities. Heart is normal size IMPRESSION: Minimal worsening in [id number] bilateral pulmonary opacities likely pneumonia Physical Exam: GENERAL: The patient is a well-developed, well-nourished, in no apparent dis tress. Alert and oriented x3. VITAL SIGNS: Reviewed HEENT: Neck supple LUNGS: Clear to auscultation. No crackles or wheezes are heard. Currently on high flow at 95% HEART: Regular rate and rhythm, no appreciable gallops, rubs, murmurs or extra heart sounds ABDOMEN: Soft, nontender, and nondistended. Positive bowel sounds. No hepatosplenomegaly was noted. EXTREMITIES: Without any cyanosis, clubbing, rash, lesions or peripheral edema. NEUROLOGIC: The patient is oriented to person, place and time. Strength and sensation are grossly intact. Face is symmetric. SKIN: Normal color, turgor and temperature. No ulcerations or rashes noted. Impression: Dyspnea secondary to acute respiratory failure with hypoxia related to COVID-19 Pneumonia Hypothyroidism Hypertension Bipolar disorder Hyperlipidemia Plan: Dyspnea secondary to acute respiratory failure with hypoxia related to COVID-19 Pneumonia: Patient decrease high flow to 95%. Meka wean off oxygen to maintain sats above 93%. Continue IV Solu-Medrol and baricitinib. Continue to monitor liver function test. CRP and ferritin improved. Will discuss with pulmonology. Encourage ambulation. Encourage proning and lying on her side. Continue to reassess and monitor closely. Hypothyroidism: Continue levothyroxine 100 mcg daily. Hypertension: BP stable off medication. Previously on metoprolol and hydrochlorothiazide. Will monitor off medication. Bipolar disorder: Continue Abilify 20 mg daily and Seroquel 100 mg daily Hyperlipidemia: Continue Lipitor 40 mg daily Code Status: Full Code DVT prophylaxis: We will change Xarelto to DVT prophylaxis. Advanced Care Planning-30 minutes: Home at discharge Time Spent Managing Pts Care (In Minutes): 55
[2021-05-19] MEDS: INSULIN -REGULAR HUMAN 50 UNIT/0.5 ML ML SQ SCH ×4 (07:30→20:55)
--- NOTE | 2021-05-19 08:14 | RAD REPORT ---
EXAM DESCRIPTION: Javi Single View05/19/2021 5:19 am CLINICAL HISTORY: Chest pain COMPARISON: May 15, 2021 FINDINGS: Minimal worsening in diffuse bilateral pulmonary opacities. Heart is normal size IMPRESSION: Minimal worsening in [id number] bilateral pulmonary opacities likely pneumonia
[2021-05-19] MEDS: RIVAROXABAN 15 MG TABLET PO SCH (09:00)
[2021-05-19] MEDS ORDERED: HOME MED 1 EA UNK (Levothyroxine Sodium [Levothyroxine] 100 MCG Capsule) PO SCH (09:00)
[2021-05-19] MEDS: ASPIRIN EC 81 MG TAB PO SCH (09:07)
[2021-05-19] MEDS: BARICITINIB 2 MG TABLET PO SCH (09:07)
[2021-05-19] MEDS: ZINC SULFATE 220 MG CAP PO SCH (09:08)
[2021-05-19] MEDS: VITAMIN D 1000 UNIT TAB PO SCH (09:08)
[2021-05-19] MEDS: THIAMINE HCL 100 MG TABLET PO SCH (09:08)
[2021-05-19] MEDS: FAMOTIDINE 20 MG TAB PO SCH ×2 (09:08→20:54)
[2021-05-19] MEDS: ASCORBIC ACID 500 MG TABLET PO SCH ×4 (09:08→20:54)
[2021-05-19] MEDS: METHYLPREDNISOLONE 125 MG INJ IV SCH ×2 (09:08→20:54)
[2021-05-19] MEDS: RIVAROXABAN 10 MG TABLET PO SCH (16:39)
--- NOTE | 2021-05-19 16:44 | P.PN ---
Subjective Date of Service: 05/19/21 Primary Care Provider: Dr. Marks Chief Complaint: covid pneumonia Not doign well still onhigh conc of O2 , Poor appetite refused Ensure Review of Systems Respiratory: Cough, Shortness of Breath Gastrointestinal: Nausea Physical Examination - Vital Signs Temperature: 98.4 F Blood Pressure: 130/63 Pulse: 107 Respirations: 19 Pulse Ox (%): 90 - Physical Exam General: Alert, Moderate distress Respiratory: Clear to auscultation bilaterally, Diminished - Studies Medications List Reviewed: Yes Assessment & Plan - Problems (Diagnosis) (1) Pneumonia due to COVID-19 virus Current Visit: Yes Status: Acute Plan: Resp failure NC in O2 requirement/ 95% Fio2/ Labs reviewed
[2021-05-19] MEDS: BENZONATATE 100 MG CAP PO PRN (20:54)
[2021-05-19] MEDS: ARIPiprazole 5 MG TAB PO SCH (20:55)
[2021-05-19] MEDS: ATORVASTATIN 40 MG TAB PO SCH (20:55)
[2021-05-19] MEDS: MELATONIN 5 MG TABLET PO PRN (20:55)
[2021-05-20 04:10] LABS: Absolute Lymphocytes (CBC) 0.5 K/uL (0.7-4.9); Hematocrit 39.4 % (36.0-45.0); Lymphocytes % 3.1 % (15.3-44.8); MPV 7.7 fL (7.6-11.3); RBC Red Blood Cell Count 4.61 M/uL (3.86-4.86)
[2021-05-20 04:29] LABS: Albumin 2.1 g/dL (3.4-5.0); Bilirubin Total 0.7 mg/dL (0.2-1.0); C-Reactive Protein 28.9 mg/L (<3.00); Ferritin 1078.9 ng/mL (8-388); Potassium 4.5 mmol/L (3.5-5.1); Protein, Total 6.9 g/dL (6.4-8.2)
[2021-05-20] MEDS: LEVOTHYROXINE SOD 0.1 MG TAB PO SCH (05:33)
--- NOTE | 2021-05-20 06:16 | P.PN ---
Subjective Date of Service: 05/20/21 Primary Care Provider: Dr. Marks Chief Complaint: covid pneumonia Subjective: Other (Patient reports slight improvement. Currently on BiPAP at 95%. Mild anxiety noted) Physical Examination - Vital Signs Temperature: 97.6 F Blood Pressure: 128/60 Pulse: 78 Respirations: 17 Pulse Ox (%): 94 - Studies Medications List Reviewed: Yes Assessment & Plan Discharge Plan: Home Plan to discharge in: Greater than 2 days Physician Review Additional Text: COVID: Positive Initial CXR: COMPARISON: March 2018 TECHNIQUE: AP portable chest image was obtained 05/15/2021 10:38 pm . FINDINGS: Lung volumes are low. Patchy airspace opacification present more pronounced in the mid and lower left lung field. Lung pattern is commonly seen with COVID-19 pneumonia. Heart and vasculature are normal. No measurable pleural effusion and no pneumothorax. No acute bony abnormality seen. No acute aortic findings suspected. IMPRESSION: Mild to moderate bilateral COVID-19 pneumonia pattern. Follow up CXR 05/20/2021: COMPARISON: Chest Single View dated 05/19/2021; Chest Single View dated 05/15/2021; Chest Pa And Lat (2 Views) dated 03/20/2018; CHEST SINGLE VIEW dated 07/10/2012 FINDINGS: Lines: None. Lungs: Improved lung volumes but persistent moderate bilateral airspace disease. Pleural: No significant pleural effusions or pneumothorax. Cardiac: The heart size is within normal limits. Bones: No acute fractures. Other: Possible new small volume of pneumomediastinum. IMPRESSION: 1. Question pneumomediastinum. No pneumothorax identified. 2. Improved lung volumes with otherwise similar moderate bilateral airspace disease consistent with multifocal pneumonia. Physical Exam: GENERAL: The patient is a well-developed, well-nourished, in no apparent distress. Alert and oriented x3. VITAL SIGNS: Reviewed HEENT: Neck supple LUNGS: Clear to auscultation. No crackles or wheezes are heard. Currently on high flow at 95% HEART: Regular rate and rhythm, no appreciable gallops, rubs, murmurs or extra heart sounds ABDOMEN: Soft, nontender, and nondistended. Positive bowel sounds. No hepatosplenomegaly was noted. EXTREMITIES: Without any cyanosis, clubbing, rash, lesions or peripheral edema. NEUROLOGIC: The patient is oriented to person, place and time. Strength and sensation are grossly intact. Face is symmetric. SKIN: Normal color, turgor and temperature. No ulcerations or rashes noted. Impression: Dyspnea secondary to acute respiratory failure with hypoxia related to COVID-19 Pneumonia Hypothyroidism Hypertension Bipolar disorder Hyperlipidemia Plan: Dyspnea secondary to acute respiratory failure with hypoxia related to COVID-19 Pneumonia: Patient on BiPAP at 95%. Continue to wean off oxygen to maintain sats above 93%. Continue IV Solu-Medrol and baricitinib. Continue to monitor renal function. CRP and ferritin slight improvement noted. Continue to discuss with pulmonology. Continue to monitor lab closely. Recheck chest x-ray tomorrow. Encourage ambulation. Encourage proning and lying on her side. Continue to reassess and monitor closely. Hypothyroidism: Continue levothyroxine 100 mcg daily. Hypertension: BP stable off medication. Previously on metoprolol and hydrochlorothiazide. Will monitor off medication. Bipolar disorder: Mild anxiety noted. We will add Ativan as needed. Continue Abilify 20 mg daily and Seroquel 100 mg daily Hyperlipidemia: Continue Lipitor 40 mg daily Code Status: Full Code DVT prophylaxis: Continue Xarelto Advanced Care Planning-30 minutes: Home at discharge Time Spent Managing Pts Care (In Minutes): 55
[2021-05-20] MEDS: INSULIN -REGULAR HUMAN 50 UNIT/0.5 ML ML SQ SCH ×4 (07:30→21:00)
--- NOTE | 2021-05-20 07:36 | RAD REPORT ---
EXAM DESCRIPTION: RAD - Chest Single View - 05/20/2021 4:35 am CLINICAL HISTORY: followup COVID COMPARISON: Chest Single View dated 05/19/2021; Chest Single View dated 05/15/2021; Chest Pa And Lat ( 2 Views) dated 03/20/2018; CHEST SINGLE VIEW dated 07/10/2012 FINDINGS: Lines: None. Lungs: Improved lung volumes but persistent moderate bilateral airspace disease. Pleural: No significant pleural effusions or pneumothorax. Cardiac: The heart size is within normal limits. Bones: No acute fractures. Other: Possible new small volume of pneumomediastinum. IMPRESSION: 1. Question pneumomediastinum. No pneumothorax identified. 2. Improved lung volumes with otherwise similar moderate bilateral airspace disease consistent with multifocal pneumonia.
[2021-05-20] MEDS: BARICITINIB 2 MG TABLET PO SCH (08:58)
[2021-05-20] MEDS: ASPIRIN EC 81 MG TAB PO SCH (08:58)
[2021-05-20] MEDS: THIAMINE HCL 100 MG TABLET PO SCH (08:58)
[2021-05-20] MEDS: FAMOTIDINE 20 MG TAB PO SCH ×2 (08:58→20:18)
[2021-05-20] MEDS: VITAMIN D 1000 UNIT TAB PO SCH (08:58)
[2021-05-20] MEDS: ASCORBIC ACID 500 MG TABLET PO SCH ×4 (08:58→20:20)
[2021-05-20] MEDS: ZINC SULFATE 220 MG CAP PO SCH (08:58)
[2021-05-20] MEDS: METHYLPREDNISOLONE 125 MG INJ IV SCH ×2 (08:59→20:20)
[2021-05-20] MEDS: METOCLOPRAMIDE 10 MG/2mL INJ IV PRN (09:27)
[2021-05-20] MEDS: LORAZEPAM 0.5 MG TABLET PO PRN ×2 (09:27→20:18)
[2021-05-20] MEDS: RIVAROXABAN 10 MG TABLET PO SCH (17:31)
[2021-05-20] MEDS: ATORVASTATIN 40 MG TAB PO SCH (20:18)
[2021-05-20] MEDS: HYDROCODONE/CHLORPHEN 5 ML/OSYR PO PRN (20:19)
[2021-05-20] MEDS: ARIPiprazole 5 MG TAB PO SCH (20:20)
[2021-05-21] MEDS: ONDANSETRON 4 MG/2 ML VIAL IV PRN (02:01)
[2021-05-21] MEDS: BENZONATATE 100 MG CAP PO PRN (02:11)
[2021-05-21] MEDS ORDERED: SCOPOLAMINE HYDROBROMIDE PATCH TD ONE (02:59)
--- NOTE | 2021-05-21 05:50 | P.PN ---
Subjective Date of Service: 05/21/21 Primary Care Provider: Dr. Marks Chief Complaint: covid pneumonia Subjective: Other (Patient placed on BiPAP last night due to hypoxia on high flow) Physical Examination - Vital Signs Temperature: 97.5 F Blood Pressure: 116/59 Pulse: 67 Respirations: 18 Pulse Ox (%): 86 - Studies Microbiology Data (last 24 hrs): 05/15/21 22:36 Blood - Blood Aerobic Blood Culture - Final No growth in 5 days. 05/15/21 22:36 Blood - Blood Anaerobic Blood Culture - Final No growth in 5 days. 05/15/21 22:36 Blood - Blood Aerobic Blood Culture - Final No growth in 5 days. 05/15/21 22:36 Blood - Blood Anaerobic Blood Culture - Final No growth in 5 days. Medications List Reviewed: Yes Assessment & Plan Discharge Plan: Home Plan to discharge in: Greater than 2 days Physician Review Additional Text: COVID: Positive Initial CXR: COMPARISON: March 2018 TECHNIQUE: AP portable chest image was obtained 05/15/2021 10:38 pm . FINDINGS: Lung volumes are low. Patchy airspace opacification present more pronounced in the mid and lower left lung field. Lung pattern is commonly seen with COVID-19 pneumonia. Heart and vasculature are normal. No measurable pleural effusion and no pneumothorax. No acute bony abnormality seen. No acute aortic findings suspected. IMPRESSION: Mild to moderate bilateral COVID-19 pneumonia pattern. Follow up CXR 05/21/2021: COMPARISON: May 20, 2021 FINDINGS: Minimal worsening in diffuse bilateral pulmonary opacities. Heart is normal size. Pneumomediastinum appears improved IMPRESSION: Minimal worsening diffuse bilateral pulmonary opacities Mild pneumomediastinum appears improved Physical Exam: GENERAL: The patient is a well-developed, well-nourished, in no apparent distress. Alert and oriented x3. VITAL SIGNS: Reviewed HEENT: Neck supple LUNGS: Patient currently on BiPAP at 100%. No distress noted HEART: Regular rate and rhythm, no appreciable gallops, rubs, murmurs or extra heart sounds ABDOMEN: Soft, nontender, and nondistended. Positive bowel sounds. No hepatosplenomegaly was noted. EXTREMITIES: Without any cyanosis, clubbing, rash, lesions or peripheral edema. NEUROLOGIC: The patient is oriented to person, place and time. Strength and sensation are grossly intact. Face is symmetric. SKIN: Normal color, turgor and temperature. No ulcerations or rashes noted. Impression: Dyspnea secondary to acute respiratory failure with hypoxia related to COVID-19 Pneumonia with mild pneumomediastinum Hypothyroidism Hypertension Bipolar disorder Hyperlipidemia Plan: Dyspnea secondary to acute respiratory failure with hypoxia related to COVID-19 Pneumonia with mild pneumomediastinum: CRP and ferritin slightly worse today. Patient with increased oxygen requirement now on BiPAP at 100%. Continue to wean off oxygen. Continue IV Solu-Medrol and baricitinib. Continue to monitor lab closely. Chest x-ray shows improvement in pneumomediastinum. Encourage ambulation. Encourage proning and lying on her side. Discussed advanced directives again as oxygen requirement has increased. Patient does not want to be intubated. She asked me to discuss this further with sister. This was discussed in detail with both. We will continue to monitor closely. Will discuss with pulmonology. Recheck chest x-ray tomorrow. Continue with current plan of care. Hypothyroidism: Continue levothyroxine 100 mcg daily. Hypertension: BP stable off medication. Previously on metoprolol and hydrochlorothiazide. Will monitor off medication. Bipolar disorder: Mild anxiety noted. Continue with Ativan as needed. Continue Abilify 20 mg daily and Seroquel 100 mg daily Hyperlipidemia: Continue Lipitor 40 mg daily Code Status: Full Code DVT prophylaxis: Continue Xarelto Advanced Care Planning-30 minutes: Home at discharge Time Spent Managing Pts Care (In Minutes): 55
[2021-05-21 05:53] LABS: Absolute Lymphocytes (CBC) 0.3 K/uL (0.7-4.9); Hematocrit 37.9 % (36.0-45.0); Lymphocytes % 1.8 % (15.3-44.8); MPV 8.1 fL (7.6-11.3)
[2021-05-21] MEDS: LEVOTHYROXINE SOD 0.1 MG TAB PO SCH (05:53)
[2021-05-21 06:13] LABS: Albumin 2.1 g/dL (3.4-5.0); Bilirubin Total 0.6 mg/dL (0.2-1.0); C-Reactive Protein 38.4 mg/L (<3.00); Ferritin 1156.4 ng/mL (8-388); Potassium 4.6 mmol/L (3.5-5.1); Protein, Total 6.7 g/dL (6.4-8.2)
[2021-05-21] MEDS: INSULIN -REGULAR HUMAN 50 UNIT/0.5 ML ML SQ SCH ×4 (07:30→21:00)
--- NOTE | 2021-05-21 07:38 | RAD REPORT ---
EXAM DESCRIPTION: Javi Single View05/21/2021 5:35 am CLINICAL HISTORY: Chest pain COMPARISON: May 20, 2021 FINDINGS: Minimal worsening in diffuse bilateral pulmonary opacities. Heart is normal size. Pneumomediastinum appears improved IMPRESSION: Minimal worsening diffuse bilateral pulmonary opacities Mild pneumomediastinum appears improved
[2021-05-21] MEDS: METOCLOPRAMIDE 10 MG/2mL INJ IV PRN (07:50)
[2021-05-21] MEDS: VITAMIN D 1000 UNIT TAB PO SCH (07:51)
[2021-05-21] MEDS: LORAZEPAM 0.5 MG TABLET PO PRN (07:51)
[2021-05-21] MEDS: HYDROCODONE/CHLORPHEN 5 ML/OSYR PO PRN (07:51)
[2021-05-21] MEDS: THIAMINE HCL 100 MG TABLET PO SCH (07:52)
[2021-05-21] MEDS: ASPIRIN EC 81 MG TAB PO SCH (07:52)
[2021-05-21] MEDS: FAMOTIDINE 20 MG TAB PO SCH ×2 (07:52→21:00)
[2021-05-21] MEDS: ASCORBIC ACID 500 MG TABLET PO SCH ×4 (07:52→21:00)
[2021-05-21] MEDS: ZINC SULFATE 220 MG CAP PO SCH (07:58)
[2021-05-21] MEDS: BARICITINIB 2 MG TABLET PO SCH (07:58)
[2021-05-21] MEDS: METHYLPREDNISOLONE 125 MG INJ IV SCH ×2 (07:58→21:00)
[2021-05-21] MEDS ORDERED: FUROSEMIDE 20 MG/ 2ML VIAL IV ONE (13:34)
--- NOTE | 2021-05-21 13:36 | P.PN ---
Subjective Date of Service: 05/21/21 Primary Care Provider: Dr. Marks Chief Complaint: covid pneumonia Patient is not doing well does not want to be intubated anxious agitated Review of Systems General: Weakness Respiratory: Shortness of Breath Physical Examination - Vital Signs Temperature: 97.5 F Blood Pressure: 116/59 Pulse: 67 Respirations: 18 Pulse Ox (%): 86 - Studies Microbiology Data (last 24 hrs): 05/15/21 22:36 Blood - Blood Aerobic Blood Culture - Final No growth in 5 days. 05/15/21 22:36 Blood - Blood Anaerobic Blood Culture - Final No growth in 5 days. 05/15/21 22:36 Blood - Blood Aerobic Blood Culture - Final No growth in 5 days. 05/15/21 22:36 Blood - Blood Anaerobic Blood Culture - Final No growth in 5 days. Medications List Reviewed: Yes Assessment & Plan - Problems (Diagnosis) (1) Pneumonia due to COVID-19 virus Current Visit: Yes Status: Acute Plan: Respiratory failure patient is not doing well requiring percent FiO2 anxious prognosis is poor patient is not improving chest x-ray shows bilateral changes left greater than right no change in treatment 1 dose of Lasix increase E EPAP started patient on Rocephin and Diflucan high risk for opportunistic infection continue with the current dose of steroid
[2021-05-21] MEDS: FLUCONAZOLE 100 MG TAB PO SCH (14:57)
[2021-05-21] MEDS: HYDROCODONE/APAP 7.5/325 MG TAB PO PRN ×2 (16:46→23:07)
[2021-05-21] MEDS: RIVAROXABAN 10 MG TABLET PO SCH (17:22)
[2021-05-21] MEDS: ATORVASTATIN 40 MG TAB PO SCH (21:00)
[2021-05-22 05:44] LABS: Absolute Lymphocytes (CBC) 0.6 K/uL (0.7-4.9); Hematocrit 42.2 % (36.0-45.0); Lymphocytes % 2.4 % (15.3-44.8); MPV 8.5 fL (7.6-11.3); RBC Red Blood Cell Count 4.87 M/uL (3.86-4.86)
--- NOTE | 2021-05-22 06:08 | P.PN ---
Subjective Date of Service: 05/22/21 Primary Care Provider: Dr. Marks Chief Complaint: covid pneumonia Subjective: Other (No changes noted. Patient remains on BiPAP) Physical Examination - Vital Signs Temperature: 98.1 F Blood Pressure: 124/72 Pulse: 80 Respirations: 19 Pulse Ox (%): 97 - Studies Medications List Reviewed: Yes Assessment & Plan Discharge Plan: Home Plan to discharge in: Greater than 2 days Physician Review Additional Text: COVID: Positive Initial CXR: COMPARISON: March 2018 TECHNIQUE: AP portable chest image was obtained 05/15/2021 10:38 pm . FINDINGS: Lung volumes are low. Patchy airspace opacification present more pronounced in the mid and lower left lung field. Lung pattern is commonly seen with COVID-19 pneumonia. Heart and vasculature are normal. No measurable pleural effusion and no pneumothorax. No acute bony abnormality seen. No acute aortic findings suspected. IMPRESSION: Mild to moderate bilateral COVID-19 pneumonia pattern. Follow up CXR 05/22/2021: COMPARISON: May 21 portable, May 20 portable TECHNIQUE: AP portable chest image was obtained 05/22/2021 5:07 am . FINDINGS: Partial clearing of the bilateral pneumonia findings. There is significant airspace disease remaining. Heart and vasculature are normal. No measurable pleural effusion and no pneumothorax. No acute bony abnormality seen. No acute aortic findings suspected. IMPRESSION: Partial clearing of airspace disease in the lung carrero. Significant pneumonia remains. Physical Exam: GENERAL: The patient is a well-developed, well-nourished, in no apparent distress. Alert and oriented x3. VITAL SIGNS: Reviewed HEENT: Neck supple LUNGS: Patient currently on BiPAP at 100%. No distress noted HEART: Regular rate and rhythm, no appreciable gallops, rubs, murmurs or extra heart sounds ABDOMEN: Soft, nontender, and nondistended. Positive bowel sounds. No hepatosplenomegaly was noted. EXTREMITIES: Without any cyanosis, clubbing, rash, lesions or peripheral edema. NEUROLOGIC: The patient is oriented to person, place and time. Strength and sensation are grossly intact. Face is symmetric. SKIN: Normal color, turgor and temperature. No ulcerations or rashes noted. Impression: Dyspnea secondary to acute respiratory failure with hypoxia related to COVID-19 Pneumonia with mild pneumomediastinum Hypothyroidism Hypertension Bipolar disorder Hyperlipidemia Plan: Dyspnea secondary to acute respiratory failure with hypoxia related to COVID-19 Pneumonia with mild pneumomediastinum: White count elevated. Chest x-ray shows minimal change. CRP and ferritin improved. Spoke with pulmonology. Pulmonology added IV Rocephin and Diflucan to cover for opportunistic infection. Continue IV Solu-Medrol and baricitinib. Patient remains on BiPAP at 100%. Continue to wean off oxygen. Continue to monitor lab closely. Encourage ambulation. Encourage proning and lying on her side. Discussed advanced directives again as oxygen requirement has increased. Patient does not want to be intubated. Continue to monitor closely. If not taking good oral intake consider IV nutritionfluids. Case discussed with mother yesterday. Hypothyroidism: Continue levothyroxine 100 mcg daily. Hypertension: BP stable off medication. Previously on metoprolol and hydrochlorothiazide. Will monitor off medication. Bipolar disorder: Mild anxiety noted. Continue with Ativan as needed. Continue Abilify 20 mg daily and Seroquel 100 mg daily Hyperlipidemia: Continue Lipitor 40 mg daily Code Status: Full Code DVT prophylaxis: Continue Xarelto Advanced Care Planning-30 minutes: Home at discharge Time Spent Managing Pts Care (In Minutes): 55
[2021-05-22 06:15] LABS: Albumin 2.3 g/dL (3.4-5.0); Bilirubin Total 0.8 mg/dL (0.2-1.0); C-Reactive Protein 24.3 mg/L (<3.00); Ferritin 1142.4 ng/mL (8-388); Magnesium 2.2 mg/dL (1.8-2.4); Potassium 4.1 mmol/L (3.5-5.1); Protein, Total 7.4 g/dL (6.4-8.2)
[2021-05-22] MEDS: LEVOTHYROXINE SOD 0.1 MG TAB PO SCH (06:30)
--- NOTE | 2021-05-22 07:15 | RAD REPORT ---
EXAM DESCRIPTION: RAD - Chest Single View - 05/22/2021 5:07 am CLINICAL HISTORY: COVIDpneumonia COMPARISON: May 21 portable, May 20 portable TECHNIQUE: AP portable chest image was obtained 05/22/2021 5:07 am . FINDINGS: Partial clearing of the bilateral pneumonia findings. There is significant airspace diseas e remaining. Heart and vasculature are normal. No measurable pleural effusion and no pneumothorax. No acute bony abnormality seen. No acute aortic findings suspected. IMPRESSION: Partial clearing of airspace disease in the lung carrero. Significant pneumonia remains.
[2021-05-22] MEDS: METOCLOPRAMIDE 10 MG/2mL INJ IV PRN (07:29)
[2021-05-22] MEDS: INSULIN -REGULAR HUMAN 50 UNIT/0.5 ML ML SQ SCH ×4 (07:30→21:00)
[2021-05-22 08:51] LABS: Blood Morphology Comment NOT SEEN (NOT SEEN); Platelet Estimate ADEQ
[2021-05-22] MEDS ORDERED: ARIPIPRAZOLE 15 MG PO SCH (09:00)
[2021-05-22] MEDS: FAMOTIDINE 20 MG TAB PO SCH ×2 (09:12→22:02)
[2021-05-22] MEDS: ASPIRIN EC 81 MG TAB PO SCH (09:12)
[2021-05-22] MEDS: LORAZEPAM 0.5 MG TABLET PO PRN ×2 (09:12→22:49)
[2021-05-22] MEDS: CEFTRIAXONE 1,000 MG in NA CHLORIDE 0.9% 50 ML IVPB SCH (09:13)
[2021-05-22] MEDS: ZINC SULFATE 220 MG CAP PO SCH (09:13)
[2021-05-22] MEDS: THIAMINE HCL 100 MG TABLET PO SCH (09:13)
[2021-05-22] MEDS: ASCORBIC ACID 500 MG TABLET PO SCH ×4 (09:13→22:02)
[2021-05-22] MEDS: VITAMIN D 1000 UNIT TAB PO SCH (09:13)
[2021-05-22] MEDS: METHYLPREDNISOLONE 125 MG INJ IV SCH ×2 (09:14→22:03)
[2021-05-22] MEDS: BENZONATATE 100 MG CAP PO PRN ×2 (09:14→22:49)
[2021-05-22] MEDS: FLUCONAZOLE 100 MG TAB PO SCH (09:20)
[2021-05-22] MEDS: ARIPiprazole 5 MG TAB PO SCH (09:21)
--- NOTE | 2021-05-22 10:39 | P.PN ---
Subjective Date of Service: 05/22/21 Primary Care Provider: Dr. Marks Chief Complaint: covid pneumonia Patient is not doing well still requiring high concentrations of oxygen currently on nonrebreather White count is elevated Review of Systems General: Weakness Respiratory: Shortness of Breath Physical Examination - Vital Signs Temperature: 97.8 F Blood Pressure: 182/70 Pulse: 130 Respirations: 60 Pulse Ox (%): 95 - Physical Exam General: Alert, Moderate distress - Studies Medications List Reviewed: Yes Assessment & Plan - Problems (Diagnosis) (1) Pneumonia due to COVID-19 virus Current Visit: Yes Status: Acute Plan: Respiratory failure condition stable still requiring high concentrations of oxygen no significant improvement significant desaturation chest x-ray still shows bilateral infiltrate trial of low-dose Lasix indications labs reviewed prognosis poor
[2021-05-22] MEDS: BARICITINIB 2 MG TABLET PO SCH (12:11)
[2021-05-22] MEDS: RIVAROXABAN 10 MG TABLET PO SCH (18:14)
[2021-05-22] MEDS ORDERED: ENSURE ENLIVE 237 ML CAN PO SCH (21:00)
[2021-05-22] MEDS: ATORVASTATIN 40 MG TAB PO SCH (22:02)
[2021-05-22] MEDS: QUETIAPINE 100MG TAB PO PRN (22:49)
[2021-05-23] MEDS: HYDROCODONE/APAP 7.5/325 MG TAB PO PRN (02:09)
[2021-05-23] MEDS: ONDANSETRON 4 MG/2 ML VIAL IV PRN (02:10)
--- NOTE | 2021-05-23 05:51 | P.PN ---
Subjective Date of Service: 05/23/21 Primary Care Provider: Dr. Marks Chief Complaint: covid pneumonia Subjective: Other (Patient stable. Currently on CPAP and high flow.) Physical Examination - Vital Signs Temperature: 99.1 F Blood Pressure: 138/71 Pulse: 88 Respirations: 22 Pulse Ox (%): 92 - Studies Medications List Reviewed: Yes Assessment & Plan Discharge Plan: Home Plan to discharge in: Greater than 2 days Physician Review Additional Text: COVID: Positive Initial CXR: COMPARISON: March 2018 TECHNIQUE: AP portable chest image was obtained 05/15/2021 10:38 pm . FINDINGS: Lung volumes are low. Patchy airspace opacification present more pronounced in the mid and lower left lung field. Lung pattern is commonly seen with COVID-19 pneumonia. Heart and vasculature are normal. No measurable pleural effusion and no pneumothorax. No acute bony abnormality seen. No acute aortic findings suspected. IMPRESSION: Mild to moderate bilateral COVID-19 pneumonia pattern. Follow up CXR 05/22/2021: COMPARISON: May 21 portable, May 20 portable TECHNIQUE: AP portable chest image was obtained 05/22/2021 5:07 am . FINDINGS: Partial clearing of the bilateral pneumonia findings. There is significant airspace disease remaining. Heart and vasculature are normal. No measurable pleural effusion and no pneumothorax. No acute bony abnormality seen. No acute aortic findings suspected. IMPRESSION: Partial clearing of airspace disease in the lung carrero. Significant pneumonia remains. Physical Exam: GENERAL: The patient is a well-developed, well-nourished, in no apparent distress. Alert and oriented x3. Less anxiety noted. VITAL SIGNS: Reviewed HEENT: Neck supple LUNGS: Currently on high flow and CPAP at 100% HEART: Regular rate and rhythm, no appreciable gallops, rubs, murmurs or extra heart sounds ABDOMEN: Soft, nontender, and nondistended. Positive bowel sounds. No hepatosplenomegaly was noted. EXTREMITIES: Without any cyanosis, clubbing, rash, lesions or peripheral edema. NEUROLOGIC: The patient is oriented to person, place and time. Strength and sensation are grossly intact. Face is symmetric. SKIN: Normal color, turgor and temperature. No ulcerations or rashes noted. Impression: Dyspnea secondary to acute respiratory failure with hypoxia related to COVID-19 Pneumonia with mild pneumomediastinum, leukocytosis Hypothyroidism Hypertension Bipolar disorder Hyperlipidemia Plan: Dyspnea secondary to acute respiratory failure with hypoxia related to COVID-19 Pneumonia with mild pneumomediastinum, leukocytosis: White count improved. CRP ferritin elevated today. Patient currently on high flow and CPAP at 100%. Spoke with respiratory. Respiratory to try to wean oxygen. Wean oxygen to maintain sats above 95%. Will change Ativan to IV to help with her anxiety as this makes her breathing difficult. Spoke with pulmonology yesterday. Pulmonology added IV Rocephin, Diflucan to cover for opportunistic infection and due to her elevated white count. Patient on low-dose Lasix as well. Renal function improved. Chest x-ray appears slight improvement. Continue IV Solu-Medrol and baricitinib. Continue monitor lab closely including CRP and ferritin. Continue to encourage patient. Encourage ambulation. Encourage proning and lying on her side. Patient remains DO NOT INTUBATE. Increase Ensure to 3 times a day to ensure nutrition is appropriate. Hypothyroidism: Continue levothyroxine 100 mcg daily. Hypertension: BP stable off medication. Previously on metoprolol and hydrochlorothiazide. Will monitor off medication. Bipolar disorder: Anxiety slight improvement. Will change Ativan to IV 3 times a day as needed. Continue Abilify 20 mg daily and Seroquel 100 mg daily Hyperlipidemia: Continue Lipitor 40 mg daily Code Status: Patient is DO NOT INTUBATE DVT prophylaxis: Ana Maria Advanced Care Planning-30 minutes: Home at discharge Time Spent Managing Pts Care (In Minutes): 55
[2021-05-23 06:13] LABS: Absolute Lymphocytes (CBC) 0.2 K/uL (0.7-4.9); Hematocrit 36.3 % (36.0-45.0); Lymphocytes % 1.5 % (15.3-44.8); MPV 8.8 fL (7.6-11.3); RBC Red Blood Cell Count 4.26 M/uL (3.86-4.86)
[2021-05-23] MEDS: LEVOTHYROXINE SOD 0.1 MG TAB PO SCH (06:27)
[2021-05-23 06:39] LABS: Bilirubin Total 0.9 mg/dL (0.2-1.0); Ferritin 1863.2 ng/mL (8-388); Magnesium 2.2 mg/dL (1.8-2.4); Potassium 4.5 mmol/L (3.5-5.1); Protein, Total 6.6 g/dL (6.4-8.2)
[2021-05-23] MEDS: INSULIN -REGULAR HUMAN 50 UNIT/0.5 ML ML SQ SCH ×4 (07:30→21:00)
[2021-05-23] MEDS ORDERED: FUROSEMIDE 20 MG/ 2ML VIAL IV SCH (09:00)
[2021-05-23] MEDS: CEFTRIAXONE 1,000 MG in NA CHLORIDE 0.9% 50 ML IVPB SCH (10:05)
[2021-05-23] MEDS: VITAMIN D 1000 UNIT TAB PO SCH (10:06)
[2021-05-23] MEDS: ATORVASTATIN 40 MG TAB PO SCH (10:06)
[2021-05-23] MEDS: FLUCONAZOLE 100 MG TAB PO SCH (10:06)
[2021-05-23] MEDS: FAMOTIDINE 20 MG TAB PO SCH ×2 (10:06→21:14)
[2021-05-23] MEDS: TRAMADOL HCL 50 MG TAB PO PRN ×2 (10:07→16:15)
[2021-05-23] MEDS: ASCORBIC ACID 500 MG TABLET PO SCH ×4 (10:07→21:15)
[2021-05-23] MEDS: METHYLPREDNISOLONE 125 MG INJ IV SCH ×2 (10:08→21:14)
[2021-05-23] MEDS: THIAMINE HCL 100 MG TABLET PO SCH (10:08)
[2021-05-23] MEDS: ASPIRIN EC 81 MG TAB PO SCH (10:08)
[2021-05-23] MEDS: ZINC SULFATE 220 MG CAP PO SCH (10:08)
[2021-05-23] MEDS: HYDROCODONE/CHLORPHEN 5 ML/OSYR PO PRN ×2 (10:09→21:14)
[2021-05-23] MEDS: BARICITINIB 2 MG TABLET PO SCH (10:12)
[2021-05-23] MEDS: ARIPiprazole 5 MG TAB PO SCH (10:12)
[2021-05-23] MEDS: ENSURE ENLIVE 237 ML CAN PO SCH ×3 (10:16→21:15)
[2021-05-23] MEDS: LORazepam 2 MG/ML VIAL IV PRN (11:30)
--- NOTE | 2021-05-23 11:55 | RAD REPORT ---
EXAM DESCRIPTION: RAD - Chest Single View - 05/23/2021 5:42 am CLINICAL HISTORY: follow up COVID Chest pain. COMPARISON: Chest Single View dated 05/22/2021; Chest Single View dated 05/21/2021; Chest Single View da brooklynn 05/20/2021; Chest Single View dated 05/19/2021 FINDINGS: Portable technique limits examination quality. Bilateral pulmonary opacities are again seen, mildly improved since yesterday's study. The heart is n ormal in size. No displaced fractures. IMPRESSION: Mild improvement lung aeration is seen since yesterday's examination.
[2021-05-23] MEDS: BENZONATATE 100 MG CAP PO PRN (16:15)
[2021-05-23] MEDS: RIVAROXABAN 10 MG TABLET PO SCH (16:16)
[2021-05-23] MEDS: MELATONIN 5 MG TABLET PO PRN (21:14)
[2021-05-24 05:23] LABS: Absolute Lymphocytes (CBC) 0.5 K/uL (0.7-4.9); Lymphocytes % 4.5 % (15.3-44.8); MPV 8.7 fL (7.6-11.3); RBC Red Blood Cell Count 4.74 M/uL (3.86-4.86)
[2021-05-24 06:04] LABS: Albumin 2.3 g/dL (3.4-5.0); Bilirubin Total 0.6 mg/dL (0.2-1.0); C-Reactive Protein 72.6 mg/L (<3.00); Ferritin 2337.8 ng/mL (8-388); Magnesium 2.5 mg/dL (1.8-2.4); Potassium 4.3 mmol/L (3.5-5.1); Protein, Total 7.4 g/dL (6.4-8.2)
--- NOTE | 2021-05-24 06:07 | P.PN ---
Subjective Date of Service: 05/24/21 Primary Care Provider: Dr. Marks Chief Complaint: covid pneumonia Subjective: Other (Patient reports improvement. Patient appears less anxious. No tachycardia noted. Currently on BiPAP at 100%. Patient in good spirit.) Physical Examination - Vital Signs Temperature: 96.8 F Blood Pressure: 122/75 Pulse: 72 Respirations: 16 Pulse Ox (%): 98 - Studies Medications List Reviewed: Yes Assessment & Plan Discharge Plan: Home Plan to discharge in: Greater than 2 days Physician Review Additional Text: COVID: Positive Initial CXR: COMPARISON: March 2018 TECHNIQUE: AP portable chest image was obtained 05/15/2021 10:38 pm . FINDINGS: Lung volumes are low. Patchy airspace opacification present more pronounced in the mid and lower left lung field. Lung pattern is commonly seen with COVID-19 pneumonia. Heart and vasculature are normal. No measurable pleural effusion and no pneumothorax. No acute bony abnormality seen. No acute aortic findings suspected. IMPRESSION: Mild to moderate bilateral COVID-19 pneumonia pattern. Follow up CXR 05/24/2021: COMPARISON: May 2021 FINDINGS: Minimal worsening in diffuse bilateral pulmonary opacities. The heart is normal size IMPRESSION: Minimal worsening in the diffuse bilateral pneumonia Physical Exam: GENERAL: Patient alert cooperative. Patient in good spirit. Less anxiety noted. VITAL SIGNS: Reviewed HEENT: Neck supple LUNGS: Better air movement bilateral. Currently on BiPAP 100%. HEART: Regular rate and rhythm, no appreciable gallops, rubs, murmurs or extra heart sounds ABDOMEN: Soft, nontender, and nondistended. Positive bowel sounds. No hepatosplenomegaly was noted. EXTREMITIES: Without any cyanosis, clubbing, rash, lesions or peripheral edema. NEUROLOGIC: The patient is oriented to person, place and time. Strength and sensation are grossly intact. Face is symmetric. SKIN: Normal color, turgor and temperature. No ulcerations or rashes noted. Impression: Dyspnea secondary to acute respiratory failure with hypoxia related to COVID-19 Pneumonia with mild pneumomediastinum, leukocytosis Hypothyroidism Hypertension Bipolar disorder Hyperlipidemia Plan: Dyspnea secondary to acute respiratory failure with hypoxia related to COVID-19 Pneumonia with mild pneumomediastinum, leukocytosis: Clinically patient appears improved. She is less anxious today. No significant tachycardia. White count improved. Now down to just BiPAP at 100%. Continue to wean off oxygen to maintain sats above 93%. Continue with Ativan as needed for anxiety. Continue with IV Rocephin, Diflucan, Solu-Medrol and baricitinib. Will discontinue IV Lasix, this was given over the last 2 days. Ferritin elevated. CRP improved. Continue to monitor lab closely. Renal function stable. Continue to encourage patient. Encourage ambulation. Encourage oral intake. Encourage proning and lying on her side. Patient remains DO NOT INTUBATE. Overall improved. Continue to monitor closely. I will turn to service over to the hospitalist team tomorrow. I will go primary care with him. Hypothyroidism: Continue levothyroxine 100 mcg daily. Hypertension: BP stable off medication. Previously on metoprolol and hydrochlorothiazide. Will monitor off medication. Bipolar disorder: Anxiety much improved with Ativan. Continue Ativan IV 3 times a day as needed. Continue Abilify 20 mg daily and Seroquel 100 mg daily Hyperlipidemia: Continue Lipitor 40 mg daily Code Status: Patient is DO NOT INTUBATE DVT prophylaxis: Xarelto Advanced Care Planning-30 minutes: Continue to discuss with mom. Anticipate continued improvement over the next several days. Time Spent Managing Pts Care (In Minutes): 55
[2021-05-24] MEDS: LEVOTHYROXINE SOD 0.1 MG TAB PO SCH (06:11)
[2021-05-24] MEDS: INSULIN -REGULAR HUMAN 50 UNIT/0.5 ML ML SQ SCH ×5 (07:30→22:05)
--- NOTE | 2021-05-24 08:04 | RAD REPORT ---
EXAM DESCRIPTION: Javi Single View05/24/2021 6:30 am CLINICAL HISTORY: Shortness of breath COMPARISON: May 2021 FINDINGS: Minimal worsening in diffuse bilateral pulmonary opacities. The heart is normal size IMPRESSION: Minimal worsening in the diffuse bilateral pneumonia
[2021-05-24] MEDS: VITAMIN D 1000 UNIT TAB PO SCH (08:48)
[2021-05-24] MEDS: CEFTRIAXONE 1,000 MG in NA CHLORIDE 0.9% 50 ML IVPB SCH (08:48)
[2021-05-24] MEDS: FAMOTIDINE 20 MG TAB PO SCH ×2 (08:49→22:04)
[2021-05-24] MEDS: ZINC SULFATE 220 MG CAP PO SCH (08:49)
[2021-05-24] MEDS: ARIPiprazole 5 MG TAB PO SCH (08:49)
[2021-05-24] MEDS: ASCORBIC ACID 500 MG TABLET PO SCH ×4 (08:49→21:55)
[2021-05-24] MEDS: FLUCONAZOLE 100 MG TAB PO SCH (08:49)
[2021-05-24] MEDS: THIAMINE HCL 100 MG TABLET PO SCH (08:49)
[2021-05-24] MEDS: METHYLPREDNISOLONE 125 MG INJ IV SCH (08:50)
[2021-05-24] MEDS: BARICITINIB 2 MG TABLET PO SCH (08:50)
[2021-05-24] MEDS: ENSURE ENLIVE 237 ML CAN PO SCH ×4 (08:51→22:05)
[2021-05-24] MEDS: ATORVASTATIN 40 MG TAB PO SCH (08:54)
[2021-05-24] MEDS: ASPIRIN EC 81 MG TAB PO SCH (08:54)
[2021-05-24] MEDS: HYDROCODONE/CHLORPHEN 5 ML/OSYR PO PRN ×2 (08:55→21:54)
--- NOTE | 2021-05-24 11:33 | P.PN ---
Subjective Date of Service: 05/24/21 Primary Care Provider: Dr. Marks Chief Complaint: Respiratory failure from coronavirus Respiratory failure conditions no change still requiring high concentrations of oxygen Review of Systems General: Weakness Respiratory: Shortness of Breath Physical Examination - Vital Signs Temperature: 96.8 F Blood Pressure: 122/75 Pulse: 72 Respirations: 16 Pulse Ox (%): 98 - Physical Exam General: Alert, Moderate distress Cardiovascular: No edema, Normal S1 S2 - Studies Medications List Reviewed: Yes Assessment & Plan - Problems (Diagnosis) (1) Pneumonia due to COVID-19 virus Current Visit: Yes Status: Acute Plan: Respiratory failure no change still requiring high concentrations of oxygen prognosis very poor no response to conventional therapy chest x-ray still shows diffuse changes use dose of Solu-Medrol if no significant response to high doses of steroid also on Barcitinib
[2021-05-24] MEDS: BENZONATATE 100 MG CAP PO PRN (12:03)
[2021-05-24] MEDS: RIVAROXABAN 10 MG TABLET PO SCH (16:05)
[2021-05-24] MEDS: LORazepam 2 MG/ML VIAL IV PRN (16:05)
[2021-05-24] MEDS ORDERED: LORazepam 2 MG/ML VIAL IV ONE (18:13)
[2021-05-24] MEDS: MELATONIN 5 MG TABLET PO PRN (21:55)
[2021-05-24] MEDS: METHYLPREDNISOLONE 40 MG INJ IV SCH (21:55)
[2021-05-25 04:02] LABS: Absolute Lymphocytes (CBC) 0.4 K/uL (0.7-4.9); Hematocrit 38.1 % (36.0-45.0); Lymphocytes % 2.2 % (15.3-44.8); MPV 9.6 fL (7.6-11.3); RBC Red Blood Cell Count 4.45 M/uL (3.86-4.86)
[2021-05-25 04:35] LABS: Albumin 2.2 g/dL (3.4-5.0); Bilirubin Total 0.5 mg/dL (0.2-1.0); C-Reactive Protein 30.2 mg/L (<3.00); Ferritin 1502.5 ng/mL (8-388); Magnesium 2.5 mg/dL (1.8-2.4); Potassium 4.7 mmol/L (3.5-5.1); Protein, Total 6.7 g/dL (6.4-8.2)
[2021-05-25] MEDS: LEVOTHYROXINE SOD 0.1 MG TAB PO SCH (04:53)
[2021-05-25] MEDS: INSULIN -REGULAR HUMAN 50 UNIT/0.5 ML ML SQ SCH ×4 (07:30→21:21)
--- NOTE | 2021-05-25 07:45 | RAD REPORT ---
EXAM DESCRIPTION: Javi Single View05/25/2021 7:14 am CLINICAL HISTORY: Shortness of breath COMPARISON: May 24, 2021 FINDINGS: No significant change in the bilateral pulmonary opacities. Heart is normal size. There may be mild pneumomediastinum
[2021-05-25] MEDS: BARICITINIB 2 MG TABLET PO SCH (08:58)
[2021-05-25] MEDS: ARIPiprazole 5 MG TAB PO SCH (08:58)
[2021-05-25] MEDS: METHYLPREDNISOLONE 40 MG INJ IV SCH ×2 (08:58→20:23)
[2021-05-25] MEDS: FLUCONAZOLE 100 MG TAB PO SCH (08:58)
[2021-05-25] MEDS: ASCORBIC ACID 500 MG TABLET PO SCH ×4 (08:59→20:23)
[2021-05-25] MEDS: FAMOTIDINE 20 MG TAB PO SCH ×2 (08:59→20:23)
[2021-05-25] MEDS: ASPIRIN EC 81 MG TAB PO SCH (08:59)
[2021-05-25] MEDS: THIAMINE HCL 100 MG TABLET PO SCH (08:59)
[2021-05-25] MEDS: ATORVASTATIN 40 MG TAB PO SCH (08:59)
[2021-05-25] MEDS: VITAMIN D 1000 UNIT TAB PO SCH (08:59)
[2021-05-25] MEDS: ENSURE ENLIVE 237 ML CAN PO SCH ×3 (09:00→20:24)
[2021-05-25] MEDS ORDERED: CEFTRIAXONE 1000 MG/VIAL ONE (09:03)
[2021-05-25] MEDS: CEFTRIAXONE 1,000 MG in NA CHLORIDE 0.9% 50 ML IVPB SCH (09:04)
[2021-05-25] MEDS ORDERED: NA CHLORIDE 0.9% 50 ML ONE (09:04)
--- NOTE | 2021-05-25 12:30 | P.PN ---
Subjective Date of Service: 05/25/21 Primary Care Provider: Dr. Marks Chief Complaint: Respiratory failure from coronavirus No change still continues to remain hypoxic requiring high concentrations of oxygen Review of Systems General: Weakness Respiratory: Shortness of Breath Physical Examination - Vital Signs Temperature: 97.4 F Blood Pressure: 154/87 Pulse: 78 Respirations: 52 Pulse Ox (%): 91 - Physical Exam General: Alert, Oriented x1, Moderate distress - Studies Medications List Reviewed: Yes Assessment & Plan - Problems (Diagnosis) (1) Pneumonia due to COVID-19 virus Current Visit: Yes Status: Acute Plan: Respiratory failure no change in patient's condition still continues to remain very hypoxic still 100% FiO2 labs medication list reviewed add low-dose Lasix daily
[2021-05-25] MEDS: FUROSEMIDE 20 MG/ 2ML VIAL IV SCH (12:59)
[2021-05-25] MEDS: LORazepam 2 MG/ML VIAL IV PRN (16:56)
[2021-05-25] MEDS: ONDANSETRON 4 MG/2 ML VIAL IV PRN (16:56)
[2021-05-25] MEDS: RIVAROXABAN 10 MG TABLET PO SCH (16:57)
--- NOTE | 2021-05-25 19:15 | P.PN ---
Date of Service: 05/25/21 Subjective Subjective: No new changes, Tachypneic Review of Systems 10-point ROS is otherwise unremarkable Physical Examination - Vital Signs reviewed - Physical Exam General: Alert, In no apparent distress, Oriented x3 Respiratory: diminished Cardiovascular: Regular rate/rhythm, Normal S1 S2, No murmurs Gastrointestinal: Normal bowel sounds, Soft and benign, Non-distended, No tenderness Musculoskeletal: No clubbing, No swelling, No tenderness Neurological: Sensation intact, Cranial nerves 3-12 intact Assessment & Plan - Problems (Diagnosis) (1) Pneumonia due to COVID-19 virus Current Visit: Yes Status: Acute (2) HTN (hypertension) Current Visit: Yes Status: Chronic Qualifiers: Hypertension type: primary hypertension Qualified Code(s): I10 - Essential (primary) hypertension - Plan Continue with POC as below: 1. Continue with IV steroids 2. Monitor inflammatory markers 3. Repeat chest x-ray 4. O2 per protocol-High flow O2 at 100% 5. Pulmonary consultation appreciated 6. Continue with albuterol inhaler therapy; also supportive care 7. Strict blood pressure control 8. GI and DVT prophylaxis
[2021-05-25] MEDS: MELATONIN 5 MG TABLET PO PRN (20:23)
[2021-05-25] MEDS: QUETIAPINE 100MG TAB PO PRN (20:23)
[2021-05-26] MEDS: LEVOTHYROXINE SOD 0.1 MG TAB PO SCH (06:16)
[2021-05-26 06:19] LABS: Absolute Lymphocytes (CBC) 0.4 K/uL (0.7-4.9); Hematocrit 37.6 % (36.0-45.0); Lymphocytes % 2.5 % (15.3-44.8); MPV 9.4 fL (7.6-11.3); RBC Red Blood Cell Count 4.41 M/uL (3.86-4.86)
[2021-05-26 06:59] LABS: Albumin 2.3 g/dL (3.4-5.0); Bilirubin Total 0.5 mg/dL (0.2-1.0); C-Reactive Protein 14.7 mg/L (<3.00); Ferritin 1115.7 ng/mL (8-388); Protein, Total 6.8 g/dL (6.4-8.2)
[2021-05-26 07:00] LABS: Magnesium 2.6 mg/dL (1.8-2.4)
[2021-05-26] MEDS: INSULIN -REGULAR HUMAN 50 UNIT/0.5 ML ML SQ SCH ×4 (07:30→21:00)
--- NOTE | 2021-05-26 08:45 | RAD REPORT ---
EXAM DESCRIPTION: RAD - Chest Single View - 05/26/2021 6:52 am CLINICAL HISTORY: follow up COVID Chest pain. COMPARISON: Chest Single View dated 05/25/2021; Chest Single View dated 05/24/2021; Chest Single View d ated 05/23/2021; Chest Single View dated 05/22/2021 FINDINGS: Portable technique limits examination quality. Bilateral pulmonary opacities appears essentially stable since yesterday's examination when accountin g for differences in technique. Pneumomediastinum remains present, fractionally progressive since anna or study. The heart is upper limit normal in size.
[2021-05-26] MEDS: ENSURE ENLIVE 237 ML CAN PO SCH ×3 (09:00→21:00)
[2021-05-26] MEDS: ARIPiprazole 5 MG TAB PO SCH (09:05)
[2021-05-26] MEDS: VITAMIN D 1000 UNIT TAB PO SCH (09:05)
[2021-05-26] MEDS: BARICITINIB 2 MG TABLET PO SCH (09:05)
[2021-05-26] MEDS: FAMOTIDINE 20 MG TAB PO SCH ×2 (09:05→21:25)
[2021-05-26] MEDS: FLUCONAZOLE 100 MG TAB PO SCH (09:06)
[2021-05-26] MEDS: FUROSEMIDE 20 MG/ 2ML VIAL IV SCH (09:06)
[2021-05-26] MEDS: METHYLPREDNISOLONE 40 MG INJ IV SCH ×2 (09:06→21:25)
[2021-05-26] MEDS: THIAMINE HCL 100 MG TABLET PO SCH (09:07)
[2021-05-26] MEDS: ASCORBIC ACID 500 MG TABLET PO SCH ×4 (09:07→21:25)
[2021-05-26] MEDS: CEFTRIAXONE 1,000 MG in NA CHLORIDE 0.9% 50 ML IVPB SCH (09:07)
[2021-05-26] MEDS: ASPIRIN EC 81 MG TAB PO SCH (09:07)
[2021-05-26] MEDS: ATORVASTATIN 40 MG TAB PO SCH (09:08)
[2021-05-26] MEDS: RIVAROXABAN 10 MG TABLET PO SCH (17:22)
[2021-05-26] MEDS: HYDROCODONE/CHLORPHEN 5 ML/OSYR PO PRN (21:26)
[2021-05-26] MEDS: MELATONIN 5 MG TABLET PO PRN (21:26)
[2021-05-26] MEDS: QUETIAPINE 100MG TAB PO PRN (21:26)
[2021-05-27] MEDS: LEVOTHYROXINE SOD 0.1 MG TAB PO SCH (05:58)
[2021-05-27 06:32] LABS: C-Reactive Protein 7.92 mg/L (<3.00); Ferritin 1142.2 ng/mL (8-388); Magnesium 2.5 mg/dL (1.8-2.4)
[2021-05-27] MEDS: INSULIN -REGULAR HUMAN 50 UNIT/0.5 ML ML SQ SCH ×4 (07:30→21:10)
[2021-05-27] MEDS: ENSURE ENLIVE 237 ML CAN PO SCH ×4 (09:00→21:00)
[2021-05-27] MEDS: VITAMIN D 1000 UNIT TAB PO SCH (09:05)
[2021-05-27] MEDS: CEFTRIAXONE 1,000 MG in NA CHLORIDE 0.9% 50 ML IVPB SCH (09:05)
[2021-05-27] MEDS: THIAMINE HCL 100 MG TABLET PO SCH (09:06)
[2021-05-27] MEDS: BARICITINIB 2 MG TABLET PO SCH (09:07)
[2021-05-27] MEDS: ATORVASTATIN 40 MG TAB PO SCH (09:07)
[2021-05-27] MEDS: ARIPiprazole 5 MG TAB PO SCH (09:07)
[2021-05-27] MEDS: FAMOTIDINE 20 MG TAB PO SCH ×2 (09:07→21:10)
[2021-05-27] MEDS: FLUCONAZOLE 100 MG TAB PO SCH (09:08)
[2021-05-27] MEDS: METHYLPREDNISOLONE 40 MG INJ IV SCH ×2 (09:08→21:10)
[2021-05-27] MEDS: FUROSEMIDE 20 MG/ 2ML VIAL IV SCH (09:08)
[2021-05-27] MEDS: ASCORBIC ACID 500 MG TABLET PO SCH ×4 (09:08→21:10)
[2021-05-27] MEDS: ASPIRIN EC 81 MG TAB PO SCH (09:08)
[2021-05-27] MEDS: LORazepam 2 MG/ML VIAL IV PRN (09:41)
--- NOTE | 2021-05-27 11:49 | RAD REPORT ---
EXAM DESCRIPTION: RAD - Chest Single View - 05/27/2021 11:24 am CLINICAL HISTORY: PICC line placement COMPARISON: None. FINDINGS: Portable chest was obtained following placement of a right upper extremity PICC line. The catheter tip is in the right subclavian SVC junction. Advancement of the PICC line approximately 4 cm would be more optimal SVC positioning..
[2021-05-27 12:51] LABS: Blood Gas Oxyhemoglobin 75.5 % (94-97)
--- NOTE | 2021-05-27 12:55 | P.PN ---
Subjective Date of Service: 05/27/21 Primary Care Provider: Dr. Marks Chief Complaint: Respiratory failure from coronavirus No change in patient's condition still continues to remain very hypoxic 100% FiO2 Review of Systems General: Weakness Respiratory: Shortness of Breath Physical Examination - Vital Signs Temperature: 97.2 F Blood Pressure: 105/73 Pulse: 89 Respirations: 47 Pulse Ox (%): 90 - Physical Exam General: Alert, Moderate distress Cardiovascular: No edema, Normal S1 S2 - Studies Medications List Reviewed: Yes Assessment & Plan - Problems (Diagnosis) (1) Pneumonia due to COVID-19 virus Current Visit: Yes Status: Acute Plan: Respiratory failure from coronavirus prognosis very poor patient has not made any progress still requiring 100% FiO2 on BiPAP with significant desaturation off the BiPAP able to eat and drink patient is on steroids Barcitinib labs chest x-rays reviewed discussed with mother about the poor prognosis not a candidate for ECMO
[2021-05-27] MEDS: RIVAROXABAN 10 MG TABLET PO SCH (16:09)
[2021-05-27] MEDS ORDERED: LORazepam 2 MG/ML VIAL IV ONE (17:00)
--- NOTE | 2021-05-27 18:35 | P.PN ---
Date of Service: 05/26/21 Subjective Subjective: Tachypneic Review of Systems 10-point ROS is otherwise unremarkable Physical Examination - Vital Signs reviewed - Physical Exam General: Alert, In no apparent distress, Oriented x3;NAD Respiratory: diminished Cardiovascular: Regular rate/rhythm, Normal S1 S2, No murmurs Gastrointestinal: Normal bowel sounds, Soft and benign, Non-distended, No tenderness Musculoskeletal: No clubbing, No swelling, No tenderness Neurological: Sensation intact, Cranial nerves 3-12 intact Assessment & Plan - Problems (Diagnosis) (1) Pneumonia due to COVID-19 virus Current Visit: Yes Status: Acute (2) HTN (hypertension) Current Visit: Yes Status: Chronic Qualifiers: Hypertension type: primary hypertension Qualified Code(s): I10 - Essential (primary) hypertension - Plan Continue with POC as below: 1. Continue with IV steroids/baracitinib 2. Monitor inflammatory markers 3. Repeat chest x-ray 4. O2 per protocol-High flow O2 at 100% 5. Pulmonary consultation appreciated 6. Continue with albuterol inhaler therapy; also supportive care 7. Strict blood pressure control 8. GI and DVT prophylaxis
--- NOTE | 2021-05-27 18:48 | P.PN ---
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 The mother stated that they were told that intubation would not help her. They will keep her a DO NOT INTUBATE at this time. Review of Systems 10-point ROS is otherwise unremarkable Physical Examination - Vital Signs reviewed - Physical Exam General: Tachypneic and in moderate to severe distress Respiratory: diminished Cardiovascular: Regular rate/rhythm, Normal S1 S2, No murmurs Gastrointestinal: Soft and benign, ND/NT BS + Musculoskeletal: No clubbing, No swelling, No tenderness Neurological: Cranial nerves 3-12 intact Assessment & Plan - Problems (Diagnosis) (1) Pneumonia due to COVID-19 virus with severe hypoxemia Current Visit: Yes Status: Acute (2) HTN (hypertension) Current Visit: Yes Status: Chronic Qualifiers: Hypertension type: primary hypertension Qualified Code(s): I10 - Essential (primary) hypertension - Plan Continue with POC as below: 1. Continue with IV steroids/baracitinib 2. Monitor inflammatory markers 3. Repeat chest x-ray 4. O2-PaO2 is 37 5. pulmonary has seen the patient and spoke with family; they will remain DNI 6. Continue with albuterol inhaler therapy; also supportive care 7. Strict blood pressure control 8. GI and DVT prophylaxis
[2021-05-27] MEDS: QUETIAPINE 100MG TAB PO PRN (21:10)
[2021-05-27] MEDS: MELATONIN 5 MG TABLET PO PRN (21:10)
[2021-05-28 04:21] LABS: Absolute Lymphocytes (CBC) 0.3 K/uL (0.7-4.9); Hematocrit 38.7 % (36.0-45.0); Lymphocytes % 2.2 % (15.3-44.8); MPV 9.6 fL (7.6-11.3); RBC Red Blood Cell Count 4.55 M/uL (3.86-4.86)
[2021-05-28 04:39] LABS: Albumin 2.7 g/dL (3.4-5.0); Bilirubin Total 0.7 mg/dL (0.2-1.0); Potassium 4.6 mmol/L (3.5-5.1)
[2021-05-28 06:15] LABS: C-Reactive Protein 3.85 mg/L (<3.00); Ferritin 1112.7 ng/mL (8-388)
[2021-05-28 06:28] LABS: Blood Morphology Comment NOT SEEN (NOT SEEN); Platelet Estimate ADEQ
[2021-05-28] MEDS: LEVOTHYROXINE SOD 0.1 MG TAB PO SCH (06:30)
[2021-05-28] MEDS: INSULIN -REGULAR HUMAN 50 UNIT/0.5 ML ML SQ SCH ×4 (07:30→21:00)
[2021-05-28] MEDS: FAMOTIDINE 20 MG TAB PO SCH ×2 (08:31→21:51)
[2021-05-28] MEDS: VITAMIN D 1000 UNIT TAB PO SCH (08:31)
[2021-05-28] MEDS: CEFTRIAXONE 1,000 MG in NA CHLORIDE 0.9% 50 ML IVPB SCH (08:31)
[2021-05-28] MEDS: METHYLPREDNISOLONE 40 MG INJ IV SCH ×2 (08:31→21:52)
[2021-05-28] MEDS: ATORVASTATIN 40 MG TAB PO SCH (08:31)
[2021-05-28] MEDS: ASCORBIC ACID 500 MG TABLET PO SCH ×4 (08:31→21:52)
[2021-05-28] MEDS: FUROSEMIDE 20 MG/ 2ML VIAL IV SCH (08:32)
[2021-05-28] MEDS: THIAMINE HCL 100 MG TABLET PO SCH (08:32)
[2021-05-28] MEDS: ARIPiprazole 5 MG TAB PO SCH (08:32)
[2021-05-28] MEDS: ASPIRIN EC 81 MG TAB PO SCH (08:32)
[2021-05-28] MEDS: FLUCONAZOLE 100 MG TAB PO SCH (08:37)
[2021-05-28] MEDS: ENSURE ENLIVE 237 ML CAN PO SCH ×3 (08:37→21:00)
[2021-05-28] MEDS: BARICITINIB 2 MG TABLET PO SCH (08:55)
[2021-05-28] MEDS: LORazepam 2 MG/ML VIAL IV PRN (11:34)
[2021-05-28] MEDS: RIVAROXABAN 10 MG TABLET PO SCH (16:23)
[2021-05-29] MEDS: LEVOTHYROXINE SOD 0.1 MG TAB PO SCH ×2 (05:44→05:52)
[2021-05-29] MEDS: INSULIN -REGULAR HUMAN 50 UNIT/0.5 ML ML SQ SCH ×4 (07:30→22:09)
--- NOTE | 2021-05-29 07:51 | P.PN ---
Date of Service: 05/28/21 Subjective Subjective: Blood gases continues to show some improvement; patient does get tachypneic at times Review of Systems 10-point ROS is otherwise unremarkable Physical Examination - Vital Signs reviewed - Physical Exam General: Tachypneic and in moderate to severe distress Respiratory: diminished Cardiovascular: Regular rate/rhythm, Normal S1 S2, No murmurs Gastrointestinal: Soft and benign, ND/NT BS + Musculoskeletal: No clubbing, No swelling, No tenderness Assessment & Plan - Problems (Diagnosis) (1) Pneumonia due to COVID-19 virus with severe hypoxemia with pneumomediastinum Current Visit: Yes Status: Acute (2) HTN (hypertension) Current Visit: Yes Status: Chronic Qualifiers: Hypertension type: primary hypertension Qualified Code(s): I10 - Essential (primary) hypertension - Plan Continue with POC as below: 1. Continue with IV steroids/baracitinib 2. Patient remains DO NOT INTUBATE 3. Repeat chest x-ray in 48 hours to assess pneumomediastinum 4. O2-PaO2 is 70 5. pulmonary following 6. Continue with albuterol inhaler therapy; also supportive care 7. Strict blood pressure control 8. GI and DVT prophylaxis
--- NOTE | 2021-05-29 07:51 | P.PN ---
Date of Service: 05/29/21 Subjective Subjective: Patient is doing well. Continue to encourage her to continue with working with the BiPAP support. She is getting tired and fatigued. Review of Systems 10-point ROS is otherwise unremarkable Physical Examination - Vital Signs reviewed - Physical Exam General: Tachypneic and in moderate to severe distress Respiratory: diminished Cardiovascular: Regular rate/rhythm, Normal S1 S2, No murmurs Gastrointestinal: Soft and benign, ND/NT BS + Musculoskeletal: No clubbing, No swelling, No tenderness Assessment & Plan - Problems (Diagnosis) (1) Pneumonia due to COVID-19 virus with severe hypoxemia with pneumomediastinum Current Visit: Yes Status: Acute (2) HTN (hypertension) Current Visit: Yes Status: Chronic Qualifiers: Hypertension type: primary hypertension Qualified Code(s): I10 - Essential (primary) hypertension - Plan Continue with POC as below: 1. Continue with IV steroids/baracitinib 2. Patient remains DO NOT INTUBATE 3. Repeat chest x-ray in a.m. to assess for pneumomediastinum 4. O2-PaO2 is 70 yesterday 5. pulmonary following 6. Continue with albuterol inhaler therapy; also supportive care 7. Strict blood pressure control 8. GI and DVT prophylaxis
[2021-05-29] MEDS: ENSURE ENLIVE 237 ML CAN PO SCH ×3 (09:00→21:00)
[2021-05-29] MEDS: ARIPiprazole 5 MG TAB PO SCH (09:00)
[2021-05-29] MEDS: THIAMINE HCL 100 MG TABLET PO SCH (09:40)
[2021-05-29] MEDS: CEFTRIAXONE 1,000 MG in NA CHLORIDE 0.9% 50 ML IVPB SCH (09:41)
[2021-05-29] MEDS: FUROSEMIDE 20 MG/ 2ML VIAL IV SCH (09:41)
[2021-05-29] MEDS: METHYLPREDNISOLONE 40 MG INJ IV SCH ×2 (09:42→22:10)
[2021-05-29] MEDS: ASCORBIC ACID 500 MG TABLET PO SCH (09:42)
[2021-05-29] MEDS: VITAMIN D 1000 UNIT TAB PO SCH (09:43)
[2021-05-29] MEDS: FAMOTIDINE 20 MG TAB PO SCH ×2 (09:44→22:10)
[2021-05-29] MEDS: ASPIRIN EC 81 MG TAB PO SCH (09:44)
[2021-05-29] MEDS: ATORVASTATIN 40 MG TAB PO SCH (09:45)
[2021-05-29] MEDS: FLUCONAZOLE 100 MG TAB PO SCH (10:03)
[2021-05-29] MEDS: BARICITINIB 2 MG TABLET PO SCH (10:12)
--- NOTE | 2021-05-29 11:50 | P.PN ---
Subjective Date of Service: 05/29/21 Primary Care Provider: Dr. Marks Chief Complaint: Respiratory failure from coronavirus Patient is feeling a little better oxygen requirements may have been decreased today still very tachypneic weak debilitated Review of Systems General: Weakness Respiratory: Shortness of Breath Physical Examination - Vital Signs Temperature: 98.9 F Blood Pressure: 147/86 Pulse: 113 Respirations: 28 Pulse Ox (%): 95 - Physical Exam General: Alert, Moderate distress Respiratory: Clear to auscultation bilaterally, Diminished - Studies Medications List Reviewed: Yes Assessment & Plan - Problems (Diagnosis) (1) Pneumonia due to COVID-19 virus Current Visit: Yes Status: Acute Plan: Respiratory failure continue to titrate O2 down to a sat of 90% use higher CPAP if necessary DC IV Rocephin continue to monitor white continue with Lasix chemistries reviewed white count no significant change continue with Diflucan
[2021-05-29] MEDS: LORazepam 2 MG/ML VIAL IV PRN (13:56)
[2021-05-29] MEDS: RIVAROXABAN 10 MG TABLET PO SCH (17:38)
[2021-05-29] MEDS: MELATONIN 5 MG TABLET PO PRN (22:10)
[2021-05-29] MEDS: BENZONATATE 100 MG CAP PO PRN (22:10)
[2021-05-30] MEDS ORDERED: HYDRALAZINE HCL 20 MG/ML VIAL IV PRN (04:40)
[2021-05-30] MEDS: LEVOTHYROXINE SOD 0.1 MG TAB PO SCH (05:37)
[2021-05-30] MEDS: LORazepam 2 MG/ML VIAL IV PRN ×3 (06:19→16:50)
[2021-05-30 06:22] LABS: Absolute Lymphocytes (CBC) 0.6 K/uL (0.7-4.9); Hematocrit 40.9 % (36.0-45.0); Lymphocytes % 2.9 % (15.3-44.8); MPV 9.6 fL (7.6-11.3); RBC Red Blood Cell Count 4.77 M/uL (3.86-4.86)
[2021-05-30 06:31] LABS: Magnesium 2.7 mg/dL (1.8-2.4); Phosphorus 3.7 mg/dL (2.5-4.9); Potassium 4.5 mmol/L (3.5-5.1)
[2021-05-30] MEDS: INSULIN -REGULAR HUMAN 50 UNIT/0.5 ML ML SQ SCH ×4 (07:30→21:26)
[2021-05-30 08:49] LABS: Blood Morphology Comment NOT SEEN (NOT SEEN); Platelet Estimate ADEQ
[2021-05-30] MEDS: ENSURE ENLIVE 237 ML CAN PO SCH ×3 (09:00→21:09)
--- NOTE | 2021-05-30 09:16 | P.PN ---
Date of Service: 05/30/21 Subjective Subjective: Patient without new changes. Still hypoxic. Review of Systems 10-point ROS is otherwise unremarkable Physical Examination - Vital Signs reviewed - Physical Exam General: Tachypneic and in moderate to severe distress Respiratory: diminished Cardiovascular: Regular rate/rhythm, Normal S1 S2, No murmurs Gastrointestinal: Soft and benign, ND/NT BS + Musculoskeletal: No clubbing, No swelling, No tenderness Assessment & Plan - Problems (Diagnosis) (1) Pneumonia due to COVID-19 virus with severe hypoxemia with pneumomediastinum Current Visit: Yes Status: Acute (2) HTN (hypertension) Current Visit: Yes Status: Chronic Qualifiers: Hypertension type: primary hypertension Qualified Code(s): I10 - Essential (primary) hypertension - Plan Continue with POC as below: 1. Continue with IV steroids 2. Patient remains DO NOT INTUBATE 3. Repeat chest x-ray in 24hrs 4. O2-PaO2 is 70 yesterday 5. pulmonary following 6. Continue with albuterol inhaler therapy; also on antifungal; also supportive care 7. Strict blood pressure control 8. GI and DVT prophylaxis
[2021-05-30] MEDS: ASPIRIN EC 81 MG TAB PO SCH (10:29)
[2021-05-30] MEDS: FAMOTIDINE 20 MG TAB PO SCH ×2 (10:29→21:09)
[2021-05-30] MEDS: VITAMIN D 1000 UNIT TAB PO SCH (10:30)
[2021-05-30] MEDS: FUROSEMIDE 20 MG/ 2ML VIAL IV SCH (10:30)
[2021-05-30] MEDS: METHYLPREDNISOLONE 40 MG INJ IV SCH ×2 (10:30→21:09)
[2021-05-30] MEDS: FLUCONAZOLE 100 MG TAB PO SCH (10:30)
[2021-05-30] MEDS: ATORVASTATIN 40 MG TAB PO SCH (10:30)
[2021-05-30] MEDS: THIAMINE HCL 100 MG TABLET PO SCH (10:30)
[2021-05-30] MEDS: BARICITINIB 2 MG TABLET PO SCH (10:31)
[2021-05-30] MEDS: ARIPiprazole 5 MG TAB PO SCH (10:31)
--- NOTE | 2021-05-30 11:34 | RAD REPORT ---
EXAM DESCRIPTION: RAD - Chest Single View - 05/30/2021 11:14 am CLINICAL HISTORY: pneumonia COMPARISON: <Comparisons> FINDINGS: Lines: PICC/ midline tip overlies right brachiocephalic vein. Lungs: Mild to moderate hazy bilateral airspace disease which is increased from 05/27/2021 Pleural: No significant pleural effusions or pneumothorax. Cardiac: The heart size is within normal limits. Bones: No acute fractures. Other: IMPRESSION: Worsening in aeration of the lungs compared with 05/27/2021.
[2021-05-30] MEDS: RIVAROXABAN 10 MG TABLET PO SCH (17:31)
[2021-05-30] MEDS: HYDROCODONE/CHLORPHEN 5 ML/OSYR PO PRN (21:25)
[2021-05-30] MEDS: MELATONIN 5 MG TABLET PO PRN (21:25)
[2021-05-31] MEDS: INSULIN -REGULAR HUMAN 50 UNIT/0.5 ML ML SQ SCH ×4 (07:30→21:00)
[2021-05-31] MEDS: ARIPiprazole 5 MG TAB PO SCH ×2 (08:38→09:00)
[2021-05-31] MEDS: FUROSEMIDE 20 MG/ 2ML VIAL IV SCH (08:38)
[2021-05-31] MEDS: FLUCONAZOLE 100 MG TAB PO SCH (08:38)
[2021-05-31] MEDS: ENSURE ENLIVE 237 ML CAN PO SCH ×4 (08:38→21:00)
[2021-05-31] MEDS: ASPIRIN EC 81 MG TAB PO SCH (08:38)
[2021-05-31] MEDS: THIAMINE HCL 100 MG TABLET PO SCH (08:40)
[2021-05-31] MEDS: BARICITINIB 2 MG TABLET PO SCH ×2 (08:40→09:00)
[2021-05-31] MEDS: FAMOTIDINE 20 MG TAB PO SCH ×3 (08:40→21:00)
[2021-05-31] MEDS: ATORVASTATIN 40 MG TAB PO SCH (08:40)
[2021-05-31] MEDS: VITAMIN D 1000 UNIT TAB PO SCH ×2 (08:41→09:00)
[2021-05-31] MEDS: ONDANSETRON 4 MG/2 ML VIAL IV PRN (09:38)
[2021-05-31] MEDS: LORazepam 2 MG/ML VIAL IV PRN (10:58)
[2021-05-31 13:18] LABS: Absolute Lymphocytes (CBC) 0.5 K/uL (0.7-4.9); Lymphocytes % 1.6 % (15.3-44.8); MPV 10.1 fL (7.6-11.3)
[2021-05-31 13:21] LABS: Potassium 3.9 mmol/L (3.5-5.1)
[2021-05-31 14:06] LABS: Blood Morphology Comment NOT SEEN (NOT SEEN); Platelet Estimate ADEQ
[2021-05-31] MEDS ORDERED: NA CHLORIDE IV ONE (15:30)
[2021-05-31] MEDS ORDERED: POTASSIUM CL IV ONE (15:30)
[2021-05-31] MEDS: RIVAROXABAN 10 MG TABLET PO SCH (16:31)
[2021-05-31] MEDS ORDERED: METHYLPREDNISOLONE 40 MG INJ IV ONE (22:59)
--- NOTE | 2021-05-31 23:07 | P.PN ---
Date of Service: 05/31/21 Subjective Subjective: Spoke with family at bedside. Patient denies any new changes. States she is feeling okay but she is still in respiratory distress. Review of Systems 10-point ROS is otherwise unremarkable Physical Examination - Vital Signs reviewed - Physical Exam General: Tachypneic and in moderate to severe distress Respiratory: diminished Cardiovascular: Regular rate/rhythm, Normal S1 S2, No murmurs Gastrointestinal: Soft and benign, ND/NT BS + Musculoskeletal: No clubbing, No swelling, No tenderness Assessment & Plan - Problems (Diagnosis) (1) Pneumonia due to COVID-19 virus with severe hypoxemia with pneumomediastinum Current Visit: Yes Status: Acute (2) HTN (hypertension) Current Visit: Yes Status: Chronic Qualifiers: Hypertension type: primary hypertension Qualified Code(s): I10 - Essential (primary) hypertension - Plan Continue with POC as below: 1. Continue with IV steroids; significant leukocytosis. Start on IV vancomycin; Levaquin with prolonged QT and patient on numerous medications that prolong QT. 2. Patient remains DO NOT INTUBATE 3. Repeat chest x-ray in 24hrs 4. O2-PaO2 is 70 yesterday 5. pulmonary following 6. Continue with albuterol inhaler therapy; also on antifungal; also supportive care 7. Strict blood pressure control 8. GI and DVT prophylaxis
[2021-06-01] MEDS: METHYLPREDNISOLONE 40 MG INJ IV SCH ×3 (01:34→21:00)
[2021-06-01] MEDS: ONDANSETRON 4 MG/2 ML VIAL IV PRN (02:06)
[2021-06-01] MEDS: LEVOTHYROXINE SOD 0.1 MG TAB PO SCH (06:30)
[2021-06-01 06:33] LABS: Potassium 4.1 mmol/L (3.5-5.1)
[2021-06-01] MEDS: INSULIN -REGULAR HUMAN 50 UNIT/0.5 ML ML SQ SCH ×4 (07:30→21:00)
--- NOTE | 2021-06-01 07:30 | RAD REPORT ---
EXAM DESCRIPTION: RAD - Chest Single View - 06/01/2021 6:33 am CLINICAL HISTORY: pneumonia COMPARISON: Chest Single View dated 05/30/2021; Chest Single View dated 05/27/2021; Chest Single View dated 05/26/2021; Chest Single View dated 05/25/2021 FINDINGS: Lines: Right subclavian approach PICC/midline with tip overlying the right brachiocephalic region Lungs: Mild to moderate bilateral airspace opacities are similar. Pleural: No significant pleural effusions or pneumothorax. Cardiac: The heart size is within normal limits. Bones: No acute fractures. Other: IMPRESSION: Mild to moderate airspace disease bilaterally which may reflect multifocal pneumonia and is unchanged compared with 05/30/2021.
[2021-06-01] MEDS: FUROSEMIDE 20 MG/ 2ML VIAL IV SCH (08:16)
[2021-06-01] MEDS: ARIPiprazole 5 MG TAB PO SCH (08:21)
[2021-06-01] MEDS: FLUCONAZOLE 100 MG TAB PO SCH (08:21)
[2021-06-01] MEDS: ASPIRIN EC 81 MG TAB PO SCH (08:21)
[2021-06-01] MEDS: ENSURE ENLIVE 237 ML CAN PO SCH ×3 (08:22→21:00)
[2021-06-01] MEDS: FAMOTIDINE 20 MG TAB PO SCH ×2 (08:22→21:00)
[2021-06-01] MEDS: ATORVASTATIN 40 MG TAB PO SCH (08:22)
[2021-06-01] MEDS: THIAMINE HCL 100 MG TABLET PO SCH (08:22)
[2021-06-01] MEDS: VITAMIN D 1000 UNIT TAB PO SCH (08:22)
[2021-06-01] MEDS ORDERED: VANCOMYCIN 1 GM in NA CHLORIDE 0.9% 250 ML IVPB SCH (09:00)
[2021-06-01] MEDS ORDERED: VANCOMYCIN 1.75 GM in NA CHLORIDE 0.9% 500 ML IVPB SCH ×3 (09:00)
--- NOTE | 2021-06-01 12:33 | P.PN ---
Subjective Date of Service: 06/01/21 Primary Care Provider: Dr. Marks Chief Complaint: Respiratory failure from coronavirus Patient seems to be improving although experiencing desaturation on minimal exertion white count elevated Review of Systems General: Weakness Respiratory: Shortness of Breath Physical Examination - Vital Signs Temperature: 97.4 F Blood Pressure: 137/77 Pulse: 113 Respirations: 38 Pulse Ox (%): 95 - Physical Exam General: Alert, Moderate distress Respiratory: Clear to auscultation bilaterally, Diminished - Studies Medications List Reviewed: Yes Assessment & Plan - Problems (Diagnosis) (1) Pneumonia due to COVID-19 virus Current Visit: Yes Status: Acute Plan: Respiratory failure from coronavirus continue to titrate O2 down White count elevated changed to cefepime prognosis poor reduce dose of Solu-Medrol continue with Lasix
--- NOTE | 2021-06-01 13:01 | P.PN ---
Subjective Date of Service: 06/01/21 Primary Care Provider: Dr. Marks Chief Complaint: Respiratory failure from coronavirus Subjective: Other (No significant change. Patient remains on BiPAP at 100%.) Physical Examination - Vital Signs Temperature: 97.4 F Blood Pressure: 137/77 Pulse: 113 Respirations: 38 Pulse Ox (%): 95 - Studies Medications List Reviewed: Yes Assessment & Plan Discharge Plan: Home Plan to discharge in: Greater than 2 days Physician Review Additional Text: COVID: Positive Initial CXR: COMPARISON: March 2018 TECHNIQUE: AP portable chest image was obtained 05/15/2021 10:38 pm . FINDINGS: Lung volumes are low. Patchy airspace opacification present more pronounced in the mid and lower left lung field. Lung pattern is commonly seen with COVID-19 pneumonia. Heart and vasculature are normal. No measurable pleural effusion and no pneumothorax. No acute bony abnormality seen. No acute aortic f indings suspected. IMPRESSION: Mild to moderate bilateral COVID-19 pneumonia pattern. Follow up CXR 06/01/2021: COMPARISON: Chest Single View dated 05/30/2021; Chest Single View dated 05/27/2021; Chest Single View dated 05/26/2021; Chest Single View dated 05/25/2021 FINDINGS: Lines: Right subclavian approach PICC/midline with tip overlying the right brachiocephalic region Lungs: Mild to moderate bilateral airspace opacities are similar. Pleural: No significant pleural effusions or pneumothorax. Cardiac: The heart size is within normal limits. Bones: No acute fractures. IMPRESSION: Mild to moderate airspace disease bilaterally which may reflect multifocal pneumonia and is unchanged compared with 05/30/2021. Physical Exam: GENERAL: Patient alert cooperative. Patient in good spirit. Less anxiety noted. VITAL SIGNS: Reviewed HEENT: Neck supple LUNGS: Better air movement bilateral. Currently on BiPAP 100%. HEART: Regular rate and rhythm, no appreciable gallops, rubs, murmurs or extra heart sounds ABDOMEN: Soft, nontender, and nondistended. Positive bowel sounds. No hepatosplenomegaly was noted. EXTREMITIES: Without any cyanosis, clubbing, rash, lesions or peripheral edema. NEUROLOGIC: The patient is oriented to person, place and time. Strength and sensation are grossly intact. Face is symmetric. SKIN: Normal color, turgor and temperature. No ulcerations or rashes noted. Impression: Dyspnea secondary to acute respiratory failure with hypoxia related to COVID-19 Pneumonia with mild pneumomediastinum, leukocytosis Hypothyroidism Hypertension Bipolar disorder Hyperlipidemia Plan: Dyspnea secondary to acute respiratory failure with hypoxia related to COVID-19 Pneumonia with mild pneumomediastinum, leukocytosis: Case discussed with pulmonology. Patient remains on BiPAP and 100%. She has been in the hospital for over 14 days. No significant change. Patient has finished course of baricitinib. White count elevated. Cefepime added. Continue Diflucan. IV steroid reduced. Patient likely with fibrotic lung. Will check with [facility] to see if she would be a candidate for lung transplant. PulmonologyDrLawrence Booker has spoken to Dr. Xiong CV surgery at [facility]. Dr. Xiong recommends transfer to pulmonary service at [facility] for further evaluation. Will arrange for transfer. Continue to monitor CRP and ferritin. Patient remains a DO NOT INTUBATE. Will discuss with patient and mother about possible transfer. Hypothyroidism: Continue levothyroxine 100 mcg daily. Hypertension: BP stable off medication. Previously on metoprolol and hydrochlorothiazide. Will monitor off medication. Bipolar disorder: Anxiety much improved with Ativan. Continue Ativan IV 3 times a day as needed. Continue Abilify 20 mg daily and Seroquel 100 mg daily Hyperlipidemia: Continue Lipitor 40 mg daily Code Status: Patient is DO NOT INTUBATE DVT prophylaxis: Xarelto Advanced Care Planning-30 minutes: Will discuss with mother about the possibility of transfer to [facility] for lung transplant evaluation. Time Spent Managing Pts Care (In Minutes): 55
[2021-06-01] MEDS: RIVAROXABAN 10 MG TABLET PO SCH (17:28)
[2021-06-01] MEDS: CEFEPIME 1 GM in NA CHLORIDE 0.9% 100 ML IV SCH (21:00)
--- NOTE | 2021-06-02 06:19 | P.PN ---
Subjective Date of Service: 06/02/21 Primary Care Provider: Dr. Marks Chief Complaint: Respiratory failure from coronavirus Subjective: Other (Stable on BIPAP) Physical Examination - Vital Signs Temperature: 98.1 F Blood Pressure: 131/73 Pulse: 84 Respirations: 30 Pulse Ox (%): 93 - Studies Medications List Reviewed: Yes Assessment & Plan Discharge Plan: Transfer Plan to discharge in: Greater than 2 days Physician Review Additional Text: COVID: Positive Initial CXR: COMPARISON: March 2018 TECHNIQUE: AP portable chest image was obtained 05/15/2021 10:38 pm . FINDINGS: Lung volumes are low. Patchy airspace opacification present more pronounced in the mid and lower left lung field. Lung pattern is commonly seen with COVID-19 pneumonia. Heart and vasculature are normal. No measurable pleural effusion and no pneumothorax. No acute bony abnormality seen. No acute aortic findings suspected. IMPRESSION: Mild to moderate bilateral COVID-19 pneumonia pattern. Follow up CXR 06/01/2021: COMPARISON: Chest Single View dated 05/30/2021; Chest Single View dated 05/27/2021; Chest Single View dated 05/26/2021; Chest Single View dated 05/25/2021 FINDINGS: Lines: Right subclavian approach PICC/midline with tip overlying the right brachiocephalic region Lungs: Mild to moderate bilateral airspace opacities are similar. Pleural: No significant pleural effusions or pneumothorax. Cardiac: The heart size is within normal limits. Bones: No acute fractures. IMPRESSION: Mild to moderate airspace disease bilaterally which may reflect multifocal pneumonia and is unchanged compared with 05/30/2021. Physical Exam: GENERAL: Patient alert cooperative. Patient in good spirit. Less anxiety noted. VITAL SIGNS: Reviewed HEENT: Neck supple LUNGS: Better air movement bilateral. Currently on BiPAP 100%. HEART: Regular rate and rhythm, no appreciable gallops, rubs, murmurs or extra heart sounds ABDOMEN: Soft, nontender, and nondistended. Positive bowel sounds. No hepatosplenomegaly was noted. EXTREMITIES: Without any cyanosis, clubbing, rash, lesions or peripheral edema. NEUROLOGIC: The patient is oriented to person, place and time. Strength and sensation are grossly intact. Face is symmetric. SKIN: Normal color, turgor and temperature. No ulcerations or rashes noted. Impression: Dyspnea secondary to acute respiratory failure with hypoxia related to COVID-19 Pneumonia with mild pneumomediastinum, leukocytosis Hypothyroidism Hypertension Bipolar disorder Hyperlipidemia Plan: Dyspnea secondary to acute respiratory failure with hypoxia related to COVID-19 Pneumonia with mild pneumomediastinum, leukocytosis: Patient remains stable on BiPAP at 100%. Case discussed with pulmonology. Pulmonology agrees patient may be a good candidate for lung transplant. PulmonologyDr. Booker spoke with Dr. Xiong CV surgery at [facility]. Initiation for transfer for lung transplant in process. Patient remains on IV cefepime, Diflucan, Solu-Medrol. Patient has finished course of baricitinib. Continue to wean off oxygen to maintain sats above 92%. Continue monitor labs closely. Recheck chest x-ray tomorrow. Discussed case with patient and mother who agrees with plan of care. Hypothyroidism: Continue levothyroxine 100 mcg daily. Hypertension: BP stable off medication. Previously on metoprolol and hydrochlorothiazide. Will monitor off medication. Bipolar disorder: Anxiety much improved with Ativan. Continue Ativan IV 3 times a day as needed. Continue Abilify 20 mg daily and Seroquel 100 mg daily Hyperlipidemia: Continue Lipitor 40 mg daily Code Status: Patient is DO NOT INTUBATE DVT prophylaxis: Xarelto Advanced Care Planning-30 minutes: Await approval for transfer to [facility] for lung transplant evaluation Time Spent Managing Pts Care (In Minutes): 55
[2021-06-02] MEDS: LEVOTHYROXINE SOD 0.1 MG TAB PO SCH (06:30)
[2021-06-02] MEDS: INSULIN -REGULAR HUMAN 50 UNIT/0.5 ML ML SQ SCH ×4 (07:30→21:00)
[2021-06-02] MEDS: VITAMIN D 1000 UNIT TAB PO SCH (09:00)
[2021-06-02] MEDS: THIAMINE HCL 100 MG TABLET PO SCH (09:00)
[2021-06-02] MEDS: ARIPiprazole 5 MG TAB PO SCH (09:00)
[2021-06-02] MEDS: ASPIRIN EC 81 MG TAB PO SCH (09:00)
[2021-06-02] MEDS: FLUCONAZOLE 100 MG TAB PO SCH (09:00)
[2021-06-02] MEDS: ENSURE ENLIVE 237 ML CAN PO SCH ×3 (09:00→20:30)
[2021-06-02] MEDS: FAMOTIDINE 20 MG TAB PO SCH ×2 (09:00→20:31)
[2021-06-02] MEDS: ATORVASTATIN 40 MG TAB PO SCH (09:00)
[2021-06-02] MEDS: METHYLPREDNISOLONE 40 MG INJ IV SCH ×2 (09:18→20:31)
[2021-06-02] MEDS: FUROSEMIDE 20 MG/ 2ML VIAL IV SCH (09:18)
[2021-06-02] MEDS: CEFEPIME 1 GM in NA CHLORIDE 0.9% 100 ML IV SCH ×2 (10:52→20:30)
[2021-06-02] MEDS: RIVAROXABAN 10 MG TABLET PO SCH (16:53)
[2021-06-03 05:10] LABS: Absolute Lymphocytes (CBC) 0.2 K/uL (0.7-4.9); Lymphocytes % 1.3 % (15.3-44.8); MPV 9.8 fL (7.6-11.3); RBC Red Blood Cell Count 4.19 M/uL (3.86-4.86)
--- NOTE | 2021-06-03 06:16 | P.PN ---
Subjective Date of Service: 06/03/21 Primary Care Provider: Dr. Marks Chief Complaint: Respiratory failure from coronavirus Subjective: Improving Physical Examination - Vital Signs Temperature: 97.3 F Blood Pressure: 140/84 Pulse: 99 Respirations: 34 Pulse Ox (%): 91 - Studies Medications List Reviewed: Yes Assessment & Plan Discharge Plan: Transfer Plan to discharge in: Greater than 2 days Physician Review Additional Text: COVID: Positive Initial CXR: COMPARISON: March 2018 TECHNIQUE: AP portable chest image was obtained 05/15/2021 10:38 pm . FINDINGS: Lung volumes are low. Patchy airspace opacification present more pronounced in the mid and lower left lung field. Lung pattern is commonly seen with COVID-19 pneumonia. Heart and vasculature are normal. No measurable pleural effusion and no pneumothorax. No acute bony abnormality seen. No acute aortic findings suspected. IMPRESSION: Mild to moderate bilateral COVID-19 pneumonia pattern. Follow up CXR 06/01/2021: COMPARISON: Chest Single View dated 05/30/2021; Chest Single View dated 05/27/2021; Chest Single View dated 05/26/2021; Chest Single View dated 05/25/2021 FINDINGS: Lines: Right subclavian approach PICC/midline with tip overlying the right brachiocephalic region Lungs: Mild to moderate bilateral airspace opacities are similar. Pleural: No significant pleural effusions or pneumothorax. Cardiac: The heart size is within normal limits. Bones: No acute fractures. IMPRESSION: Mild to moderate airspace disease bilaterally which may reflect multifocal pneumonia and is unchanged compared with 05/30/2021. Physical Exam: GENERAL: Patient alert cooperative. Patient in good spirit. Less anxiety noted. VITAL SIGNS: Reviewed HEENT: Neck supple LUNGS: Better air movement bilateral. Patient requiring less on BiPAP today. HEART: Regular rate and rhythm, no appreciable gallops, rubs, murmurs or extra heart sounds ABDOMEN: Soft, nontender, and nondistended. Positive bowel sounds. No hepatosplenomegaly was noted. EXTREMITIES: Without any cyanosis, clubbing, rash, lesions or peripheral edema. NEUROLOGIC: The patient is oriented to person, place and time. Strength and sensation are grossly intact. Face is symmetric. SKIN: Normal color, turgor and temperature. No ulcerations or rashes noted. Impression: Dyspnea secondary to acute respiratory failure with hypoxia related to COVID-19 Pneumonia with mild pneumomediastinum, leukocytosis Hypothyroidism Hypertension Bipolar disorder Hyperlipidemia Plan: Dyspnea secondary to acute respiratory failure with hypoxia related to COVID-19 Pneumonia with mild pneumomediastinum, leukocytosis: Patient required less on BiPAP. Continue to wean off oxygen to maintain sats above 93%. Awaiting possible transfer for lung transplant patient remains on IV cefepime, Diflucan, Solu-Medrol. Patient has finished course of baricitinib. Continue with current treatment plan. Hypothyroidism: Continue levothyroxine 100 mcg daily. Hypertension: BP stable off medication. Previously on metoprolol and hydrochlorothiazide. Will monitor off medication. Bipolar disorder: Anxiety much improved with Ativan. Continue Ativan IV 3 times a day as needed. Continue Abilify 20 mg daily and Seroquel 100 mg daily Hyperlipidemia: Continue Lipitor 40 mg daily Code Status: Patient is DO NOT INTUBATE DVT prophylaxis: Xarelto Advanced Care Planning-30 minutes: Await approval for transfer to [facility] for lung transplant evaluation Time Spent Managing Pts Care (In Minutes): 55
[2021-06-03 06:20] LABS: ALT/SGPT 27 U/L (12-78); AST/SGOT 16 U/L (15-37); Albumin 2.9 g/dL (3.4-5.0); Alkaline Phosphatase 81 U/L (45-117); BUN Blood Urea Nitrogen 32 mg/dL (7-18); Bicarbonate 32 mmol/L (21-32); Bilirubin Total 0.8 mg/dL (0.2-1.0); Ferritin 1422.4 ng/mL (8-388); Glucose Level 224 mg/dL (74-106); Magnesium 2.6 mg/dL (1.8-2.4); Potassium 4.3 mmol/L (3.5-5.1); Protein, Total 6.7 g/dL (6.4-8.2); Sodium Level 135 mmol/L (136-145)
[2021-06-03] MEDS: LEVOTHYROXINE SOD 0.1 MG TAB PO SCH (06:30)
--- NOTE | 2021-06-03 07:48 | RAD REPORT ---
EXAM DESCRIPTION: RAD - Chest Single View - 06/03/2021 7:21 am CLINICAL HISTORY: follow up COVID COMPARISON: Chest Single View dated 06/01/2021; Chest Single View dated 05/30/2021; Chest Single View dated 05/27/2021; Chest Single View dated 05/26/2021 FINDINGS: Lines: Right subclavian catheter with tip overlying the brachiocephalic vein is similar. Lungs: Similar mild bilateral airspace disease. Pleural: No significant pleural effusions or pneumothorax. Cardiac: The heart size is within normal limits. Bones: No acute fractures. Other: IMPRESSION: Mild to moderate hazy bilateral airspace disease without significant change compared wit h 06/01/2021 .
[2021-06-03] MEDS: INSULIN -REGULAR HUMAN 50 UNIT/0.5 ML ML SQ SCH ×4 (08:15→21:10)
[2021-06-03] MEDS: ATORVASTATIN 40 MG TAB PO SCH (09:00)
[2021-06-03] MEDS: ENSURE ENLIVE 237 ML CAN PO SCH ×3 (09:00→21:00)
[2021-06-03] MEDS: VITAMIN D 1000 UNIT TAB PO SCH (09:00)
[2021-06-03] MEDS: THIAMINE HCL 100 MG TABLET PO SCH (09:00)
[2021-06-03] MEDS ORDERED: NA CHLORIDE 0.9% 0 ML ONE (09:08)
[2021-06-03] MEDS: FUROSEMIDE 20 MG/ 2ML VIAL IV SCH (09:50)
[2021-06-03] MEDS: METHYLPREDNISOLONE 40 MG INJ IV SCH ×2 (09:50→21:00)
[2021-06-03] MEDS: ASPIRIN EC 81 MG TAB PO SCH (09:50)
[2021-06-03] MEDS: FLUCONAZOLE 100 MG TAB PO SCH (09:50)
[2021-06-03] MEDS: ARIPiprazole 5 MG TAB PO SCH (09:50)
[2021-06-03] MEDS: FAMOTIDINE 20 MG TAB PO SCH ×2 (09:50→21:00)
[2021-06-03] MEDS: CEFEPIME 1 GM in NA CHLORIDE 0.9% 100 ML IV SCH ×2 (09:50→21:00)
[2021-06-03] MEDS: LORazepam 2 MG/ML VIAL IV PRN ×2 (10:47→18:25)
[2021-06-03] MEDS: RIVAROXABAN 10 MG TABLET PO SCH (17:26)
[2021-06-04] MEDS: LORazepam 2 MG/ML VIAL IV PRN ×2 (04:22→17:35)
--- NOTE | 2021-06-04 06:05 | P.PN ---
Subjective Date of Service: 06/04/21 Primary Care Provider: Dr. Marks Chief Complaint: Respiratory failure from coronavirus Subjective: Other (Overall stable. Currently on 80% BiPAP) Physical Examination - Vital Signs Temperature: 96.8 F Blood Pressure: 113/82 Pulse: 111 Respirations: 37 Pulse Ox (%): 89 - Studies Medications List Reviewed: Yes Assessment & Plan Discharge Plan: Home Plan to discharge in: Greater than 2 days Physician Review Additional Text: COVID: Positive Initial CXR: COMPARISON: March 2018 TECHNIQUE: AP portable chest image was obtained 05/15/2021 10:38 pm . FINDINGS: Lung volumes are low. Patchy airspace opacification present more pronounced in the mid and lower left lung field. Lung pattern is commonly seen with COVID-19 pneumonia. Heart and vasculature are normal. No measurable pleural effusion and no pneumothorax. No acute bony abnormality seen. No acute aortic findings suspected. IMPRESSION: Mild to moderate bilateral COVID-19 pneumonia pattern. Follow up CXR 06/04/2021: COMPARISON: Chest Single View dated 06/03/2021; Chest Single View dated 06/01/2021; Chest Single View dated 05/30/2021; Chest Single View dated 05/27/2021 FINDINGS: Lines: PICC tip overlying the right brachiocephalic vein Lungs: Moderate hazy bilateral airspace disease which has worsened on the left side. Pleural: No significant pleural effusions or pneumothorax. Cardiac: The heart size is within normal limits. Bones: No acute fractures. IMPRESSION: Moderate bilateral airspace disease with mild worsening on the left compared with 06/03/2021. Physical Exam: GENERAL: Patient alert cooperative. Patient in good spirit. Less anxiety noted. VITAL SIGNS: Reviewed HEENT: Neck supple LUNGS: Better air movement bilateral. Patient requiring less on BiPAP today. Currently on on 80% BiPAP HEART: Regular rate and rhythm, no appreciable gallops, rubs, murmurs or extra heart sounds ABDOMEN: Soft, nontender, and nondistended. Positive bowel sounds. No hepatosplenomegaly was noted. EXTREMITIES: Without any cyanosis, clubbing, rash, lesions or peripheral edema. NEUROLOGIC: The patient is oriented to person, place and time. Strength and sensation are grossly intact. Face is symmetric. SKIN: Normal color, turgor and temperature. No ulcerations or rashes noted. Impression: Dyspnea secondary to acute respiratory failure with hypoxia related to COVID-19 Pneumonia with mild pneumomediastinum, leukocytosis Hypothyroidism Hypertension Bipolar disorder Hyperlipidemia Hyperglycemia suspect underlying diabetes mellitus type 2 Plan: Dyspnea secondary to acute respiratory failure with hypoxia related to COVID-19 Pneumonia with mild pneumomediastinum, leukocytosis: Patient remained stable. Using less oxygen on BiPAP. Currently on 80% BiPAP. Continue to wean off oxygen to maintain sats above 93%. Continue IV Solu-Medrol, cefepime and Diflucan. Patient has finished course of baricitinib. Patient was evaluated by [facility] lung transplant team. Patient was denied transfer as she is not a candidate for lung transplant. Continue with pulmonology recommendations. Slow improvement noted. Case discussed with patient and mother yesterday. Hypothyroidism: Continue levothyroxine 100 mcg daily. Hypertension: BP stable off medication. Previously on metoprolol and hydrochlorothiazide. Will monitor off medication. Bipolar disorder: Anxiety much improved with Ativan. Continue Ativan IV 3 times a day as needed. Continue Abilify 20 mg daily and Seroquel 100 mg daily Hyperlipidemia: Continue Lipitor 40 mg daily Hyperglycemia suspect underlying diabetes mellitus type 2: We will check A1c. Will change diet to ADA diet. We will continue to monitor Accu-Cheks. Sliding scale in place. We will start low-dose Lantus 5 units at bedtime. Code Status: Patient is DO NOT INTUBATE DVT prophylaxis: Xarelto Advanced Care Planning-30 minutes: Home at discharge Time Spent Managing Pts Care (In Minutes): 55
[2021-06-04] MEDS: LEVOTHYROXINE SOD 0.1 MG TAB PO SCH (06:30)
[2021-06-04 06:44] LABS: Absolute Lymphocytes (CBC) 0.2 K/uL (0.7-4.9); Hematocrit 38.7 % (36.0-45.0); Lymphocytes % 0.9 % (15.3-44.8)
[2021-06-04 07:04] LABS: Albumin 3.1 g/dL (3.4-5.0); Bilirubin Total 0.8 mg/dL (0.2-1.0); C-Reactive Protein 11.6 mg/L (<3.00); Magnesium 2.6 mg/dL (1.8-2.4); Potassium 3.7 mmol/L (3.5-5.1); Protein, Total 6.9 g/dL (6.4-8.2)
[2021-06-04] MEDS: INSULIN -REGULAR HUMAN 50 UNIT/0.5 ML ML SQ SCH ×4 (07:30→21:00)
--- NOTE | 2021-06-04 07:55 | RAD REPORT ---
EXAM DESCRIPTION: RAD - Chest Single View - 06/04/2021 5:33 am CLINICAL HISTORY: follow up COVID COMPARISON: Chest Single View dated 06/03/2021; Chest Single View dated 06/01/2021; Chest Single View dated 05/30/2021; Chest Single View dated 05/27/2021 FINDINGS: Lines: PICC tip overlying the right brachiocephalic vein Lungs: Moderate hazy bilateral airspace disease which has worsened on the left side. Pleural: No significant pleural effusions or pneumothorax. Cardiac: The heart size is within normal limits. Bones: No acute fractures. Other: IMPRESSION: Moderate bilateral airspace disease with mild worsening on the left compared with 2021.
[2021-06-04 08:08] LABS: Blood Morphology Comment NOT SEEN (NOT SEEN); Platelet Estimate ADEQ
[2021-06-04] MEDS: ATORVASTATIN 40 MG TAB PO SCH (09:00)
[2021-06-04] MEDS: ENSURE ENLIVE 237 ML CAN PO SCH ×3 (09:00→21:00)
[2021-06-04] MEDS: VITAMIN D 1000 UNIT TAB PO SCH (09:00)
[2021-06-04] MEDS: THIAMINE HCL 100 MG TABLET PO SCH (09:00)
[2021-06-04] MEDS: CEFEPIME 1 GM in NA CHLORIDE 0.9% 100 ML IV SCH ×2 (10:26→21:00)
[2021-06-04] MEDS: METHYLPREDNISOLONE 40 MG INJ IV SCH ×2 (10:27→21:00)
[2021-06-04] MEDS: FUROSEMIDE 20 MG/ 2ML VIAL IV SCH (10:27)
[2021-06-04] MEDS: FLUCONAZOLE 100 MG TAB PO SCH (10:28)
[2021-06-04] MEDS: ARIPiprazole 5 MG TAB PO SCH (10:28)
[2021-06-04] MEDS: ASPIRIN EC 81 MG TAB PO SCH (10:28)
[2021-06-04] MEDS: FAMOTIDINE 20 MG TAB PO SCH ×2 (10:29→21:00)
[2021-06-04] MEDS ORDERED: INSULIN GLARGINE 100 UNIT/ML SQ ONE (15:00)
[2021-06-04] MEDS ORDERED: POTASSIUM CL SA 10 MEQ TAB PO ONE (16:00)
[2021-06-04] MEDS: RIVAROXABAN 10 MG TABLET PO SCH (17:20)
[2021-06-04] MEDS ORDERED: INSULIN GLARGINE 100 UNIT/ML SQ SCH ×2 (21:00)
[2021-06-05] MEDS: LORazepam 2 MG/ML VIAL IV PRN ×2 (01:16→12:01)
--- NOTE | 2021-06-05 06:05 | P.PN ---
Subjective Date of Service: 06/05/21 Primary Care Provider: Dr. Marks Chief Complaint: Respiratory failure from coronavirus Subjective: Other (Overall stable. Currently on BiPAP at 85%.) Physical Examination - Vital Signs Temperature: 98.9 F Blood Pressure: 151/82 Pulse: 106 Respirations: 14 Pulse Ox (%): 90 - Studies Medications List Reviewed: Yes Assessment & Plan Discharge Plan: Home Plan to discharge in: Greater than 2 days Physician Review Additional Text: COVID: Positive Initial CXR: COMPARISON: March 2018 TECHNIQUE: AP portable chest image was obtained 05/15/2021 10:38 pm . FINDINGS: Lung volumes are low. Patchy airspace opacification present more pronounced in the mid and lower left lung field. Lung pattern is commonly seen with COVID-19 pneumonia. Heart and vasculature are normal. No measurable pleural effusion and no pneumothorax. No acute bony abnormality seen. No acute aortic findings suspected. IMPRESSION: Mild to moderate bilateral COVID-19 pneumonia pattern. Follow up CXR 06/04/2021: COMPARISON: Chest Single View dated 06/03/2021; Chest Single View dated 06/01/19; Chest Single View dated 05/30/2021; Chest Single View dated 05/27/2021 FINDINGS: Lines: PICC tip overlying the right brachiocephalic vein Lungs: Moderate hazy bilateral airspace disease which has worsened on the left side. Pleural: No significant pleural effusions or pneumothorax. Cardiac: The heart size is within normal limits. Bones: No acute fractures. IMPRESSION: Moderate bilateral airspace disease with mild worsening on the left compared with 06/03/2021. Physical Exam: GENERAL: Patient alert cooperative. Patient in good spirit. Less anxiety noted. VITAL SIGNS: Reviewed HEENT: Neck supple LUNGS: Better air movement bilateral. Patient currently on BiPAP at 85%. HEART: Regular rate and rhythm, no appreciable gallops, rubs, murmurs or extra heart sounds ABDOMEN: Soft, nontender, and nondistended. Positive bowel sounds. No hepatosplenomegaly was noted. EXTREMITIES: Without any cyanosis, clubbing, rash, lesions or peripheral edema. NEUROLOGIC: The patient is oriented to person, place and time. Strength and sensation are grossly intact. Face is symmetric. SKIN: Normal color, turgor and temperature. No ulcerations or rashes noted. Impression: Dyspnea secondary to acute respiratory failure with hypoxia related to COVID-19 Pneumonia with mild pneumomediastinum, leukocytosis Hypothyroidism Hypertension Bipolar disorder Hyperlipidemia Hyperglycemia suspect underlying diabetes mellitus type 2 Plan: Dyspnea secondary to acute respiratory failure with hypoxia related to COVID-19 Pneumonia with mild pneumomediastinum, leukocytosis: Patient remained stable. Currently on 85% BiPAP. Continue to wean off to maintain sats above 93%. Continue IV Solu-Medrol, cefepime and Diflucan. Patient has finished course of baricitinib. Patient was evaluated by [facility] lung transplant team. Patient was denied transfer as she is not a candidate for lung transplant. Continue with current plan of care. Continue with pulmonology recommendations. Slow improvement noted. Continue to discuss case with patient and mother. I will turn the service over to the hospitalist team tomorrow. I will go over the plan of care with him. Hypothyroidism: Continue levothyroxine 100 mcg daily. Hypertension: BP stable off medication. Previously on metoprolol and hydrochlorothiazide. Will monitor off medication. Bipolar disorder: Anxiety much improved with Ativan. Continue Ativan IV 3 times a day as needed. Continue Abilify 20 mg daily and Seroquel 100 mg daily Hyperlipidemia: Continue Lipitor 40 mg daily Hyperglycemia suspect underlying diabetes mellitus type 2: Hemoglobin A1c 7.1. Diet changed to ADA diet. Continue Accu-Cheks. Sliding scale changed to aggressive. Patient started on Lantus 10 units subcu daily. Will monitor and adjust appropriately. Code Status: Patient is DO NOT INTUBATE DVT prophylaxis: Xarelto Advanced Care Planning-30 minutes: Home at discharge Time Spent Managing Pts Care (In Minutes): 55
[2021-06-05 06:23] LABS: Absolute Lymphocytes (CBC) 0.3 K/uL (0.7-4.9); Hematocrit 39.4 % (36.0-45.0); Lymphocytes % 1.3 % (15.3-44.8); RBC Red Blood Cell Count 4.58 M/uL (3.86-4.86)
[2021-06-05] MEDS: LEVOTHYROXINE SOD 0.1 MG TAB PO SCH (06:30)
[2021-06-05 06:53] LABS: Albumin 3.1 g/dL (3.4-5.0); Bilirubin Total 0.7 mg/dL (0.2-1.0); C-Reactive Protein 5.91 mg/L (<3.00); Ferritin 1060.4 ng/mL (8-388); Magnesium 2.8 mg/dL (1.8-2.4); Potassium 3.9 mmol/L (3.5-5.1); Protein, Total 6.9 g/dL (6.4-8.2)
[2021-06-05] MEDS: FUROSEMIDE 20 MG/ 2ML VIAL IV SCH (08:20)
[2021-06-05] MEDS: CEFEPIME 1 GM in NA CHLORIDE 0.9% 100 ML IV SCH ×2 (08:21→20:33)
[2021-06-05] MEDS: METHYLPREDNISOLONE 40 MG INJ IV SCH (08:21)
[2021-06-05] MEDS: FAMOTIDINE 20 MG TAB PO SCH ×2 (08:22→21:00)
[2021-06-05] MEDS: THIAMINE HCL 100 MG TABLET PO SCH (08:22)
[2021-06-05] MEDS: FLUCONAZOLE 100 MG TAB PO SCH (08:22)
[2021-06-05] MEDS: ATORVASTATIN 40 MG TAB PO SCH (08:23)
[2021-06-05] MEDS: ASPIRIN EC 81 MG TAB PO SCH (08:23)
[2021-06-05] MEDS: VITAMIN D 1000 UNIT TAB PO SCH (08:23)
[2021-06-05] MEDS: ARIPiprazole 5 MG TAB PO SCH (08:24)
[2021-06-05] MEDS: INSULIN -REGULAR HUMAN 50 UNIT/0.5 ML ML SQ SCH ×4 (08:24→20:36)
[2021-06-05] MEDS: ENSURE ENLIVE 237 ML CAN PO SCH ×3 (08:25→20:59)
--- NOTE | 2021-06-05 08:37 | RAD REPORT ---
EXAM DESCRIPTION: Javi Single View06/05/2021 5:52 am CLINICAL HISTORY: Chest pain COMPARISON: June 04, 2021 FINDINGS: PICC line with its tip in right brachiocephalic vein. Mild improvement in the bilateral pulmonary opacities. Heart is normal size IMPRESSION: Mild improvement in the bilateral pulmonary opacities probably pneumonia
--- NOTE | 2021-06-05 11:33 | P.PN ---
Subjective Date of Service: 06/05/21 Primary Care Provider: Dr. Marks Chief Complaint: Respiratory failure from coronavirus Condition stable she is still on 80% FiO2 still feeling weak eating and drinking Review of Systems General: Weakness Respiratory: Shortness of Breath Physical Examination - Vital Signs Temperature: 99.2 F Blood Pressure: 151/82 Pulse: 106 Respirations: 33 Pulse Ox (%): 94 - Studies Medications List Reviewed: Yes Assessment & Plan - Problems (Diagnosis) (1) Pneumonia due to COVID-19 virus Current Visit: Yes Status: Acute Plan: Respiratory failure condition stable continue to wean down on the oxygen white count is declining change now to p.o. dexamethasone vital signs stable add also low-dose spironolactone to maintain a slight negative fluid
[2021-06-05] MEDS: METOPROLOL TAR 25 MG TAB PO SCH (17:47)
[2021-06-05] MEDS: RIVAROXABAN 10 MG TABLET PO SCH (17:47)
[2021-06-05] MEDS: SPIRONOLACTONE 25 MG TABLET PO SCH (17:48)
[2021-06-05] MEDS: dexAMETHasone 4 MG TAB PO SCH (20:33)
[2021-06-05] MEDS: INSULIN GLARGINE 100 UNIT/ML SQ SCH (20:38)
--- NOTE | 2021-06-06 07:56 | RAD REPORT ---
EXAM DESCRIPTION: Javi Single View06/06/2021 6:08 am CLINICAL HISTORY: Chest pain COMPARISON: June 05, 2021 FINDINGS: No significant change in the bilateral pulmonary opacities probably pneumonia. Heart is n ormal size. PICC line with its tip in the right brachiocephalic vein
[2021-06-06] MEDS: ATORVASTATIN 40 MG TAB PO SCH (08:45)
[2021-06-06] MEDS: CEFEPIME 1 GM in NA CHLORIDE 0.9% 100 ML IV SCH ×2 (08:53→20:18)
[2021-06-06] MEDS: FUROSEMIDE 20 MG/ 2ML VIAL IV SCH (08:54)
[2021-06-06] MEDS: FLUCONAZOLE 100 MG TAB PO SCH (08:57)
[2021-06-06] MEDS: THIAMINE HCL 100 MG TABLET PO SCH (08:57)
[2021-06-06] MEDS: ASPIRIN EC 81 MG TAB PO SCH (08:57)
[2021-06-06] MEDS: VITAMIN D 1000 UNIT TAB PO SCH (08:59)
[2021-06-06] MEDS: FAMOTIDINE 20 MG TAB PO SCH ×2 (08:59→20:20)
[2021-06-06] MEDS: SPIRONOLACTONE 25 MG TABLET PO SCH (08:59)
[2021-06-06] MEDS: INSULIN -REGULAR HUMAN 50 UNIT/0.5 ML ML SQ SCH ×4 (09:00→20:19)
[2021-06-06] MEDS: ARIPiprazole 5 MG TAB PO SCH (09:00)
[2021-06-06] MEDS: ENSURE ENLIVE 237 ML CAN PO SCH ×3 (09:00→21:00)
[2021-06-06] MEDS: dexAMETHasone 4 MG TAB PO SCH ×2 (09:00→20:35)
--- NOTE | 2021-06-06 11:44 | P.PN ---
Subjective Date of Service: 06/06/21 Primary Care Provider: Dr. Marks Chief Complaint: Respiratory failure from coronavirus Subjective: No new changes (still on bipap , fio02 at 80) Physical Examination - Vital Signs Temperature: 97.8 F Blood Pressure: 123/77 Pulse: 104 Respirations: 26 Pulse Ox (%): 95 - Studies Medications List Reviewed: Yes Assessment And Plan Physician Review Additional Text: COVID: Positive Initial CXR: COMPARISON: March 2018 TECHNIQUE: AP portable chest image was obtained 05/15/2021 10:38 pm . FINDINGS: Lung volumes are low. Patchy airspace opacification present more pronounced in the mid and lower left lung field. Lung pattern is commonly seen with COVID-19 pneumonia. Heart and vasculature are normal. No measurable pleural effusion and no pneumothorax. No acute bony abnormality seen. No acute aortic findings suspected. IMPRESSION: Mild to moderate bilateral COVID-19 pneumonia pattern. Follow up CXR 06/04/2021: COMPARISON: Chest Single View dated 06/03/2021; Chest Single View dated 06/01/2021; Chest Single View dated 05/30/2021; Chest Single View dated 05/27/2021 FINDINGS: Lines: PICC tip overlying the right brachiocephalic vein Lungs: Moderate hazy bilateral airspace disease which has worsened on the left side. Pleural: No significant pleural effusions or pneumothorax. Cardiac: The heart size is within normal limits. Bones: No acute fractures. IMPRESSION: Moderate bilateral airspace disease with mild worsening on the left compared with 06/03/2021. Physical Exam: GENERAL: Patient alert cooperative. Patient in good spirit. Less anxiety noted. VITAL SIGNS: Reviewed HEENT: Neck supple LUNGS: Better air movement bilateral. Patient currently on BiPAP at 80%. HEART: Regular rate and rhythm, no appreciable gallops, rubs, murmurs or extra heart sounds ABDOMEN: Soft, nontender, and nondistended. Positive bowel sounds. No hepatosplenomegaly was noted. EXTREMITIES: Without any cyanosis, clubbing, rash, lesions or peripheral edema. NEUROLOGIC: The patient is oriented to person, place and time. Strength and sensation are grossly intact. Face is symmetric. SKIN: Normal color, turgor and temperature. No ulcerations or rashes noted. Impression: Dyspnea secondary to acute respiratory failure with hypoxia related to COVID-19 Pneumonia with mild pneumomediastinum, leukocytosis Hypothyroidism Hypertension Bipolar disorder Hyperlipidemia Hyperglycemia suspect underlying diabetes mellitus type 2 Plan: Dyspnea secondary to acute respiratory failure with hypoxia related to COVID-19 Pneumonia with mild pneumomediastinum, leukocytosis: slight marginal decrease in fi02 to 80% -c/w Bipap -Wean as tolerated, continue to maintain O2 sat above 93% Continue empirical antibiotics with cefepime and Diflucan. Continue IV Solu-Medrol Follow-up pulmonary Status post finished course of baricitinib. -Status post evaluated by [facility] lung transplant team. Patient was denied transfer as she is not a candidate for lung transplant. Continue with current plan of care. Continue with pulmonology recommendations. Slow improvement noted. Continue to discuss case with patient and mother. -We will add muscle strength VITAMINS like carnithine to regime - follow serum phosphorus level and replete Hypothyroidism: Continue levothyroxine 100 mcg daily. Hypertension: BP stable off medication. Previously on metoprolol and hydrochlorothiazide. Will monitor off medication. Bipolar disorder: Anxiety much improved with Ativan. Continue Ativan IV 3 times a day as needed. Continue Abilify 20 mg daily and Seroquel 100 mg daily Hyperlipidemia: Continue Lipitor 40 mg daily Hyperglycemia suspect underlying diabetes mellitus type 2: Hemoglobin A1c 7.1. Diet changed to ADA diet. Continue Accu-Cheks. Sliding scale changed to aggressive. Patient started on Lantus 10 units subcu daily. Will monitor and adjust appropriately. Code Status: Patient is DO NOT INTUBATE DVT prophylaxis: Xarelto Advanced Care Planning-30 minutes: Home at discharge
[2021-06-06] MEDS ORDERED: LEVOCARNITINE PO SCH (14:00)
[2021-06-06 15:16] LABS: Blood O2 Saturation 92.9 % (92-98.5)
[2021-06-06 15:17] LABS: Arterial Blood Carboxyhemoglob 1.5 % (0-1.5)
[2021-06-06 15:21] LABS: Blood Gas Oxyhemoglobin 90.4 % (94-97)
[2021-06-06] MEDS: RIVAROXABAN 10 MG TABLET PO SCH (17:11)
[2021-06-06] MEDS ORDERED: NA CHLORIDE 0.9% 100 ML ONE (20:29)
[2021-06-06] MEDS: INSULIN GLARGINE 100 UNIT/ML SQ SCH (20:37)
[2021-06-06] MEDS: LEVOCARNITINE PO SCH (21:00)
[2021-06-07] MEDS: MELATONIN 5 MG TABLET PO PRN ×2 (02:22→21:12)
[2021-06-07] MEDS: LORazepam 2 MG/ML VIAL IV PRN ×2 (02:38→22:36)
[2021-06-07] MEDS: METOPROLOL TAR 25 MG TAB PO SCH ×2 (06:00→18:00)
[2021-06-07] MEDS: LEVOTHYROXINE SOD 0.1 MG TAB PO SCH (06:30)
[2021-06-07] MEDS: THIAMINE HCL 100 MG TABLET PO SCH (08:40)
[2021-06-07] MEDS: SPIRONOLACTONE 25 MG TABLET PO SCH (08:41)
[2021-06-07] MEDS: dexAMETHasone 4 MG TAB PO SCH ×2 (08:41→21:13)
[2021-06-07] MEDS: ASPIRIN EC 81 MG TAB PO SCH (08:41)
[2021-06-07] MEDS: FLUCONAZOLE 100 MG TAB PO SCH (08:41)
[2021-06-07] MEDS: VITAMIN D 1000 UNIT TAB PO SCH (08:41)
[2021-06-07] MEDS: FAMOTIDINE 20 MG TAB PO SCH ×2 (08:42→21:12)
[2021-06-07] MEDS: ARIPiprazole 5 MG TAB PO SCH (08:42)
[2021-06-07] MEDS: ATORVASTATIN 40 MG TAB PO SCH (08:42)
[2021-06-07] MEDS: INSULIN -REGULAR HUMAN 50 UNIT/0.5 ML ML SQ SCH ×4 (08:42→21:14)
[2021-06-07] MEDS: FUROSEMIDE 20 MG/ 2ML VIAL IV SCH (08:43)
[2021-06-07] MEDS: ENSURE ENLIVE 237 ML CAN PO SCH ×3 (08:44→21:14)
[2021-06-07] MEDS: CEFEPIME 1 GM in NA CHLORIDE 0.9% 100 ML IV SCH ×2 (08:44→21:11)
[2021-06-07] MEDS: LEVOCARNITINE PO SCH ×3 (08:45→21:00)
--- NOTE | 2021-06-07 10:32 | P.PN ---
Subjective Date of Service: 06/07/21 Primary Care Provider: Dr. Marks Chief Complaint: Respiratory failure from coronavirus Subjective: No new changes, No C/O voiced Physical Examination - Vital Signs Temperature: 98.6 F Blood Pressure: 140/85 Pulse: 94 Respirations: 34 Pulse Ox (%): 94 - Studies Medications List Reviewed: Yes Assessment And Plan Physician Review: Patient Assessed, Agree with Above Assessment and Plan Physician Review Additional Text: COVID: Positive Initial CXR: COMPARISON: March 2018 TECHNIQUE: AP portable chest image was obtained 05/15/2021 10:38 pm . FINDINGS: Lung volumes are low. Patchy airspace opacification present more pronounced in the mid and lower left lung field. Lung pattern is commonly seen with COVID-19 pneumonia. Heart and vasculature are normal. No measurable pleural effusion and no pneumothorax. No acute bony abnormality seen. No acute aortic findings suspected. IMPRESSION: Mild to moderate bilateral COVID-19 pneumonia pattern. Follow up CXR 06/04/2021: COMPARISON: Chest Single View dated 06/03/2021; Chest Single View dated 06/01/2021; Chest Single View dated 05/30/2021; Chest Single View dated 05/27/2021 FINDINGS: Lines: PICC tip overlying the right brachiocephalic vein Lungs: Moderate hazy bilateral airspace disease which has worsened on the left side. Pleural: No significant pleural effusions or pneumothorax. Cardiac: The heart size is within normal limits. Bones: No acute fractures. IMPRESSION: Moderate bilateral airspace disease with mild worsening on the left compared with 06/03/2021. Physical Exam: GENERAL: Patient alert cooperative. Patient in good spirit. Less anxiety noted. VITAL SIGNS: Reviewed HEENT: Neck supple LUNGS: Better air movement bilateral. Patient currently on BiPAP at 80%. HEART: Regular rate and rhythm, no appreciable gallops, rubs, murmurs or extra heart sounds ABDOMEN: Soft, nontender, and nondistended. Positive bowel sounds. No hepatosplenomegaly was noted. EXTREMITIES: Without any cyanosis, clubbing, rash, lesions or peripheral edema. NEUROLOGIC: The patient is oriented to person, place and time. Strength and sensation are grossly intact. Face is symmetric. SKIN: Normal color, turgor and temperature. No ulcerations or rashes noted. Impression: Dyspnea secondary to acute respiratory failure with hypoxia related to COVID-19 Pneumonia with mild pneumomediastinum, leukocytosis Hypothyroidism Hypertension Bipolar disorder Hyperlipidemia Hyperglycemia suspect underlying diabetes mellitus type 2 Plan: Dyspnea secondary to acute respiratory failure with hypoxia related to COVID-19 Pneumonia with mild pneumomediastinum, leukocytosis: slight marginal decrease in fi02 to 78% -Able to tolerate few hours of high flow 02 yesterday -Wean as tolerated, continue to maintain O2 sat above 93% Continue empirical antibiotics with cefepime and Diflucan. Continue IV Solu-Medrol Follow-up pulmonary Status post finished course of baricitinib. -Status post evaluated by [facility] lung transplant team. Patient was denied transfer as she is not a candidate for lung transplant. Continue with current plan of care. Continue with pulmonology recommendations. Slow improvement noted. Continue to discuss case with patient and mother. -c/w muscle strength carnithine to regime - follow serum phosphorus level and replete Hypothyroidism: Continue levothyroxine 100 mcg daily. Hypertension: BP stable off medication. Previously on metoprolol and hydrochlorothiazide. Will monitor off medication. Bipolar disorder: Anxiety much improved with Ativan. Continue Ativan IV 3 times a day as needed. Continue Abilify 20 mg daily and Seroquel 100 mg daily Hyperlipidemia: Continue Lipitor 40 mg daily Hyperglycemia suspect underlying diabetes mellitus type 2: Hemoglobin A1c 7.1. Diet changed to ADA diet. Continue Accu-Cheks. Sliding scale changed to aggressive. Patient started on Lantus 10 units subcu daily. Will monitor and adjust appropriately. Code Status: Patient is DO NOT INTUBATE DVT prophylaxis: [place] Advanced Care Planning-30 minutes: Home at discharge
[2021-06-07] MEDS: RIVAROXABAN 10 MG TABLET PO SCH (17:42)
[2021-06-07] MEDS: BENZONATATE 100 MG CAP PO PRN (21:12)
[2021-06-07] MEDS: HYDROCODONE/CHLORPHEN 5 ML/OSYR PO PRN (21:12)
[2021-06-07] MEDS: QUETIAPINE 100MG TAB PO PRN (21:12)
[2021-06-07] MEDS: INSULIN GLARGINE 100 UNIT/ML SQ SCH (21:22)
[2021-06-07] MEDS ORDERED: WATER FOR INJ,STERILE 10 ML IV PRN (23:26)
[2021-06-07] MEDS ORDERED: ALTEPLASE 2 MG/VIAL IV SCH ×2 (23:45)
[2021-06-08 05:04] LABS: Ferritin 993.4 ng/mL (8-388); Magnesium 2.6 mg/dL (1.8-2.4); Phosphorus 2.9 mg/dL (2.5-4.9); Potassium 4.3 mmol/L (3.5-5.1)
[2021-06-08] MEDS: LORazepam 2 MG/ML VIAL IV PRN (05:24)
[2021-06-08] MEDS: LEVOTHYROXINE SOD 0.1 MG TAB PO SCH (05:25)
[2021-06-08] MEDS: METOPROLOL TAR 25 MG TAB PO SCH ×2 (05:25→17:28)
[2021-06-08] MEDS: BENZONATATE 100 MG CAP PO PRN (05:26)
[2021-06-08] MEDS: CEFEPIME 1 GM in NA CHLORIDE 0.9% 100 ML IV SCH (08:38)
[2021-06-08] MEDS: FUROSEMIDE 20 MG/ 2ML VIAL IV SCH (08:39)
[2021-06-08] MEDS: VITAMIN D 1000 UNIT TAB PO SCH (08:39)
[2021-06-08] MEDS: ARIPiprazole 5 MG TAB PO SCH (08:39)
[2021-06-08] MEDS: SPIRONOLACTONE 25 MG TABLET PO SCH (08:40)
[2021-06-08] MEDS: FLUCONAZOLE 100 MG TAB PO SCH (08:40)
[2021-06-08] MEDS: dexAMETHasone 4 MG TAB PO SCH ×2 (08:40→21:00)
[2021-06-08] MEDS: FAMOTIDINE 20 MG TAB PO SCH ×2 (08:40→21:05)
[2021-06-08] MEDS: ASPIRIN EC 81 MG TAB PO SCH (08:41)
[2021-06-08] MEDS: INSULIN -REGULAR HUMAN 50 UNIT/0.5 ML ML SQ SCH ×4 (08:41→21:06)
[2021-06-08] MEDS: THIAMINE HCL 100 MG TABLET PO SCH (08:41)
[2021-06-08] MEDS: ATORVASTATIN 40 MG TAB PO SCH (08:41)
[2021-06-08] MEDS: ENSURE ENLIVE 237 ML CAN PO SCH ×3 (08:42→21:00)
[2021-06-08] MEDS: LEVOCARNITINE PO SCH ×2 (08:42→14:00)
--- NOTE | 2021-06-08 12:53 | P.PN ---
Subjective Date of Service: 06/08/21 Primary Care Provider: Dr. Marks Chief Complaint: Respiratory failure from coronavirus No change in patient's condition may be slightly better still requiring 100% FiO2 very anxious weak Review of Systems General: Weakness Respiratory: Shortness of Breath Physical Examination - Vital Signs Temperature: 97.1 F Blood Pressure: 116/68 Pulse: 102 Respirations: 20 Pulse Ox (%): 95 - Physical Exam General: Alert, Moderate distress Respiratory: Clear to auscultation bilaterally, Diminished Cardiovascular: No edema, Regular rate/rhythm - Studies Medications List Reviewed: Yes Assessment & Plan - Problems (Diagnosis) (1) Pneumonia due to COVID-19 virus Current Visit: Yes Status: Acute Plan: Respiratory failure no significant change still requiring significant amount of oxygen patient's white count continues to remain elevated DC cefepime no fever vital signs stable Physician Review: Patient Assessed, Agree with Above Assessment and Plan
--- NOTE | 2021-06-08 17:27 | P.PN ---
Date of Service: 06/08/21 Subjective Subjective: Patient is still in distress but oxygen requirements have decreased somewhat. Review of Systems 10-point ROS is otherwise unremarkable Physical Examination - Vital Signs reviewed - Physical Exam General: Tachypneic and in moderate to severe distress Respiratory: diminished Cardiovascular: Regular rate/rhythm, Normal S1 S2, No murmurs Gastrointestinal: Soft and benign, ND/NT BS + Musculoskeletal: No clubbing, No swelling, No tenderness Assessment & Plan - Problems (Diagnosis) (1) Pneumonia due to COVID-19 virus with severe hypoxemia with pneumomediastinum Current Visit: Yes Status: Acute (2) HTN (hypertension) Current Visit: Yes Status: Chronic Qualifiers: Hypertension type: primary hypertension Qualified Code(s): I10 - Essential (primary) hypertension - Plan Continue with POC as below: 1. Continue with IV steroids; significant leukocytosis. Start on IV vancomycin; Levaquin with prolonged QT and patient on numerous medications that prolong QT. 2. Patient remains DO NOT INTUBATE 3. Repeat chest x-ray in 24hrs 4. O2; continue to monitor O2 sats 5. pulmonary following 6. Continue with albuterol inhaler therapy; also on antifungal; also supportive care 7. Strict blood pressure control 8. GI and DVT prophylaxis
[2021-06-08] MEDS: RIVAROXABAN 10 MG TABLET PO SCH (17:28)
[2021-06-08] MEDS: INSULIN GLARGINE 100 UNIT/ML SQ SCH (21:00)
[2021-06-09 08:14] LABS: C-Reactive Protein 3.22
[2021-06-09 08:35] LABS: ALT/SGPT 25 U/L (12-78); AST/SGOT 34 U/L (15-37); Absolute Lymphocytes (CBC) 0.2 K/uL (0.7-4.9); Albumin 3.1 g/dL (3.4-5.0); Alkaline Phosphatase 88 U/L (45-117); BUN Blood Urea Nitrogen 30 mg/dL (7-18); Bicarbonate 31 mmol/L (21-32); Bilirubin Total 1.2 mg/dL (0.2-1.0); Glucose Level 160 mg/dL (74-106); Hematocrit 33.9 % (36.0-45.0); Lymphocytes % 1.3 % (15.3-44.8); MPV 9.6 fL (7.6-11.3); Magnesium 2.5 mg/dL (1.8-2.4); NT PRO-BNP 371 pg/mL (<125); Potassium 3.8 mmol/L (3.5-5.1); Protein, Total 6.2 g/dL (6.4-8.2); RBC Red Blood Cell Count 3.95 M/uL (3.86-4.86); Sodium Level 137 mmol/L (136-145)
[2021-06-09] MEDS: SPIRONOLACTONE 25 MG TABLET PO SCH (08:39)
[2021-06-09] MEDS: VITAMIN D 1000 UNIT TAB PO SCH (08:40)
[2021-06-09] MEDS: FLUCONAZOLE 100 MG TAB PO SCH (08:41)
[2021-06-09] MEDS: FUROSEMIDE 20 MG/ 2ML VIAL IV SCH (08:41)
[2021-06-09] MEDS: LEVOTHYROXINE SOD 0.1 MG TAB PO SCH (08:41)
[2021-06-09] MEDS: ATORVASTATIN 40 MG TAB PO SCH (08:42)
[2021-06-09] MEDS: ARIPiprazole 5 MG TAB PO SCH (08:42)
[2021-06-09] MEDS: FAMOTIDINE 20 MG TAB PO SCH ×2 (08:43→21:12)
[2021-06-09] MEDS: ASPIRIN EC 81 MG TAB PO SCH (08:43)
[2021-06-09] MEDS: dexAMETHasone 4 MG TAB PO SCH ×2 (08:44→21:00)
[2021-06-09] MEDS: THIAMINE HCL 100 MG TABLET PO SCH (08:44)
[2021-06-09] MEDS: INSULIN -REGULAR HUMAN 50 UNIT/0.5 ML ML SQ SCH ×4 (08:45→21:00)
[2021-06-09] MEDS: LEVOCARNITINE PO SCH ×3 (08:45→21:00)
[2021-06-09] MEDS: ENSURE ENLIVE 237 ML CAN PO SCH ×3 (08:46→21:00)
[2021-06-09 09:17] LABS: Platelet Estimate DECR; White Blood Cell Scan OK (OK)
[2021-06-09] MEDS: METOPROLOL TAR 25 MG TAB PO SCH ×2 (09:17→17:22)
[2021-06-09 09:18] LABS: Blood Morphology Comment NOT SEEN (NOT SEEN)
[2021-06-09] MEDS: RIVAROXABAN 10 MG TABLET PO SCH (17:22)
[2021-06-09] MEDS: INSULIN GLARGINE 100 UNIT/ML SQ SCH (21:00)
[2021-06-09] MEDS: MELATONIN 5 MG TABLET PO PRN (21:12)
[2021-06-10 04:47] VITALS: O2SAT 98
[2021-06-10] MEDS: LEVOTHYROXINE SOD 0.1 MG TAB PO SCH (06:20)
[2021-06-10 08:18] VITALS: BP 136/96; TEMP 99.5
[2021-06-10] MEDS: METOPROLOL TAR 25 MG TAB PO SCH (08:18)
[2021-06-10] MEDS: THIAMINE HCL 100 MG TABLET PO SCH (08:18)
[2021-06-10] MEDS: ASPIRIN EC 81 MG TAB PO SCH (08:18)
[2021-06-10] MEDS: VITAMIN D 1000 UNIT TAB PO SCH (08:19)
[2021-06-10] MEDS: SPIRONOLACTONE 25 MG TABLET PO SCH (08:19)
[2021-06-10] MEDS: FAMOTIDINE 20 MG TAB PO SCH (08:19)
[2021-06-10] MEDS: INSULIN -REGULAR HUMAN 50 UNIT/0.5 ML ML SQ SCH (08:20)
[2021-06-10] MEDS: dexAMETHasone 4 MG TAB PO SCH (08:20)
[2021-06-10] MEDS: ATORVASTATIN 40 MG TAB PO SCH (08:20)
[2021-06-10] MEDS: FLUCONAZOLE 100 MG TAB PO SCH (08:20)
[2021-06-10] MEDS: LEVOCARNITINE PO SCH (08:21)
[2021-06-10] MEDS: ENSURE ENLIVE 237 ML CAN PO SCH (08:21)
[2021-06-10] MEDS: ARIPiprazole 5 MG TAB PO SCH ×2 (08:22→09:50)
[2021-06-10] MEDS: FUROSEMIDE 20 MG/ 2ML VIAL IV SCH (08:22)
[2021-06-10] MEDS: LORazepam 2 MG/ML VIAL IV PRN (10:11)
--- NOTE | 2021-06-10 12:25 | P.PN ---
Subjective Date of Service: 06/10/21 Primary Care Provider: Dr. Marks Chief Complaint: Respiratory failure from coronavirus Patient still continues to remain hypoxic although saturations seem to be a little better still feeling weak and tired Review of Systems General: Weakness Respiratory: Shortness of Breath Physical Examination - Vital Signs Temperature: 99.5 F Blood Pressure: 136/96 Pulse: 90 Respirations: 38 Pulse Ox (%): 100 - Physical Exam General: Alert, Moderate distress Respiratory: Clear to auscultation bilaterally, Diminished - Studies Medications List Reviewed: Yes Assessment & Plan - Problems (Diagnosis) (1) Pneumonia due to COVID-19 virus Current Visit: Yes Status: Acute Plan: Respiratory failure continue to titrate O2 down to 90% benefit from life 2000 until her oxygen levels are down to 50% no change in present therapy vital signs satisfactory supportive care Physician Review: Patient Assessed, Agree with Above Assessment and Plan
[2021-06-11] MEDS ORDERED: ARIPiprazole 5 MG TAB PO SCH (09:00)
== END 2021-06-10 11:47 | disposition expired | DRG 177 ==
LOC: ER 20:25 → ERHOLD 05-16 00:33 → 4TH 05-17 23:16
PROVIDERS: ADMIT Hospitalist; ATTEND Hospitalist
PROC: 5A0955A Assistance with Respiratory Ventilation, Greater than 96 Consecutive Hours, High Flow/Velocity Cannula (ICD-10-PCS; principal; 2021-05-16)
PROC: XW0DXM6 Introduction of Baricitinib into Mouth and Pharynx, External Approach, New Technology Group 6 (ICD-10-PCS; 2021-05-16)
PROC: 02HV33Z Insertion of Infusion Device into Superior Vena Cava, Percutaneous Approach (ICD-10-PCS; 2021-05-27)
DX: U07.1 COVID-19 (principal); J12.82 Pneumonia due to coronavirus disease 2019; J96.01 Acute respiratory failure with hypoxia; I10 Essential (primary) hypertension; E78.5 Hyperlipidemia, unspecified; E03.9 Hypothyroidism, unspecified; J98.2 Interstitial emphysema; F41.9 Anxiety disorder, unspecified; E11.65 Type 2 diabetes mellitus with hyperglycemia; D72.829 Elevated white blood cell count, unspecified; F31.9 Bipolar disorder, unspecified; Z88.1 Allergy status to other antibiotic agents; Z88.5 Allergy status to narcotic agent; Z88.8 Allergy status to other drugs, medicaments and biological substances; Z79.890 Hormone replacement therapy; Z79.899 Other long term (current) drug therapy; Z79.01 Long term (current) use of anticoagulants
CPT/HCPCS: 36415; 36569; 71045; 80048; 80053; 80061; 80076; 80202; 82728; 82805; 82947; 83036; 83605; 83735; 83880; 84100; 84145; 84439; 84443; 84484; 85025; 85610; 86140; 87040; 93005; 94002; 94003; 94660; 94760; 96374; 96375; 97112; 97162; 97530; 97535; 99284; J0456; J0692; J1940; J2270; J2405; J2765; J2920; J2930; J2997; J3370; J3480; J7030; J7040; J8540; U0003